=== PATIENT | female | born 1935 | race Caucasian/White ===

== ENCOUNTER → 2023-11-21 14:32 | Outpatient (REF) | payer MEDICARE, OTHER, SELFPAY ==
[2023-11-21 16:08] LABS: % Basophils 0.9 % (0-2); % Eosinophils 2.5 % (0-6); % Immature Granulocytes 0.3 % (0-0.5); % Lymphocytes 22.3 % (20.5-51.1); % Monocytes 7.9 % (1.7-9.3); % Neutrophils 66.1 % (42.2-75.2); Absolute Basophils 0.1 10^3/uL (0-0.2); Absolute Eosinophils 0.2 10^3/uL (0-0.7); Absolute Lymphocytes 1.5 10^3/uL (1.2-3.4); Absolute Monocytes 0.5 10^3/uL (0.1-0.6); Absolute Neutrophils 4.5 10^3/uL (1.4-6.5); Hematocrit 40.4 % (37.0-47.0); Hemoglobin 13.1 g/dL (12.0-16.0); Mean Corp Hgb Conc. 32.4 g/dL (33.0-37.0); Mean Corpuscular Hgb 30.2 pg (27.0-31.0); Mean Corpuscular Volume 93.1 fL (81.0-99.0); Mean Platelet Volume 9.5 fL (7.4-10.4); Nucleated Red Blood Cells % 0 %; Platelet Count 260 10^3/uL (130-400); Red Blood Cell Count 4.34 10^6/uL (4.20-5.40); Red Cell Dist. Width 14.4 % (11.5-14.5); White Blood Cell Count 6.8 10^3/uL (4.8-10.8)
[2023-11-21 16:32] LABS: ALT (SGPT) 13 U/L (0-35); AST (SGOT) 22 U/L (14-36); Albumin 3.5 g/dl (3.5-5.0); Alkaline Phosphatase 77 U/L (38-126); Blood Urea Nitrogen 18 mg/dl (7-17); Calcium 9.5 mg/dl (8.4-10.2); Carbon Dioxide 28 mmol/L (22-30); Chloride 101 mmol/L (98-107); Glucose 99 mg/dl (70-99); HDL Cholesterol 59 mg/dl; LDL Cholesterol, Calculated 145 mg/dl; Potassium 4.5 mmol/L (3.5-5.1); Sodium 138 mmol/L (135-145); Total Bilirubin 0.6 mg/dl (0.2-1.3); Total Cholesterol 241 mg/dl (50-199); Total Protein 6.1 g/dl (6.3-8.2); Triglyceride 189 mg/dl (10-149); Very Low Density Lipoprotein 37 mg/dl (0-30); eGFR > 60.00
[2023-11-22 08:59] LABS: Glycohemoglobin (HgbA1c) 5.8 % (4.0-5.6)
== END ==
LOC: OLABWPC 14:32
PROVIDERS: ATTENDING PHYSICIAN Internal Medicine
DX: C50.919 Malignant neoplasm of unspecified site of unspecified female breast (principal); F33.9 Major depressive disorder, recurrent, unspecified; F03.90 Unspecified dementia, unspecified severity, without behavioral disturbance, psychotic disturbance, mood disturbance, and anxiety; I10 Essential (primary) hypertension; E11.9 Type 2 diabetes mellitus without complications
CPT/HCPCS: 36415; 80053; 80061; 83036; 85025

== ENCOUNTER → 2023-12-28 15:32 | Outpatient (REF) | payer MEDICARE, OTHER, SELFPAY | LOC: DHCBS MAIN 15:32 | PROVIDERS: ATTENDING PHYSICIAN Internal Medicine Cardiovascular Disease; FAMILY PHYSICIAN Internal Medicine | DX: R01.1 Cardiac murmur, unspecified (principal) | CPT/HCPCS: 93306 ==

== ENCOUNTER → 2024-01-17 12:06 | Outpatient (REF) | payer MEDICARE, OTHER, SELFPAY ==
[2024-01-17 13:35] LABS: ALT (SGPT) 43 U/L (0-35); AST (SGOT) 37 U/L (14-36); Albumin 3.8 g/dl (3.5-5.0); Alkaline Phosphatase 98 U/L (38-126); Direct Bilirubin 0.3 mg/dl (0.0-0.4); HDL Cholesterol 58 mg/dl; LDL Cholesterol, Calculated 62 mg/dl; Total Bilirubin 0.5 mg/dl (0.2-1.3); Total Cholesterol 145 mg/dl (50-199); Total Protein 6.2 g/dl (6.3-8.2); Triglyceride 127 mg/dl (10-149); Very Low Density Lipoprotein 25 mg/dl (0-30)
== END ==
LOC: OLABWPC 12:06
PROVIDERS: ATTENDING PHYSICIAN Internal Medicine
DX: E78.00 Pure hypercholesterolemia, unspecified (principal)
CPT/HCPCS: 36415; 80061; 80076

== ENCOUNTER → 2024-05-08 22:00 | Outpatient (REF) | payer MEDICARE, OTHER, SELFPAY ==
[2024-05-09 12:27] LABS: Urine Albumin Trace (Neg - Trace); Urine Bilirubin Negative (Negative); Urine Character Mucous (Clear); Urine Color Yellow; Urine Glucose Negative (Negative); Urine Ketone Negative (Negative); Urine Leukocyte 1+ (Negative); Urine Nitrite Negative (Negative); Urine Occult Blood Negative (Negative); Urine Urobilinogen Negative (Neg - 1+)
[2024-05-09 12:42] LABS: Urine Bacteria Many (Negative); Urine Calcium Oxalate Crystals Present
[2024-05-09 12:44] LABS: Urine Mucus Moderate; Urine Red Blood Cell 0-2 /HPF (0-2); Urine White Cell 0-2 /HPF (0-5)
== END ==
LOC: OLABWPC 22:00
PROVIDERS: ATTENDING PHYSICIAN Internal Medicine
DX: N39.0 Urinary tract infection, site not specified (principal)
CPT/HCPCS: 81003; 81015; 87086

== ENCOUNTER 2025-02-02 22:11 | Inpatient (IN) | payer MEDICARE, OTHER, SELFPAY ==
--- NOTE | 2025-02-02 18:42 | ED.GENMED ---
History of Present Illness
<DANIELLE Bangura - Last Filed: 02/02/25 21:10>
General
Chief Complaint: Fall
Source: patient
Exam Limitations: none
Time Seen by Provider: 02/02/25 18:33
Nursing documentation reviewed up to this point in time: agreed with
History of Present Illness
History of Present Illness:
89 yr. old female from [facility] sent for evaluation of witnessed fall. As per medics they noticed patient was complaining of pain to the left leg and not walking normally after fall. retirement reported no head injury. Patient
does have chronic tremors that is not new. They also report patient is not on blood thinners. I did review medication list patient is not listed on any anticoagulation. Patient does complain of pain to the left femur left hip with palpation.
Past History
<DANIELLE Bangura - Last Filed: 02/02/25 21:10>
Past History
ED Past Medical History: Other (Dementia)
Social History
Tobacco: Non-smoker
Alcohol: None
Drug: None
Review of Systems
<DANIELLE Bangura - Last Filed: 02/02/25 21:10>
Review of Systems
Allergies reviewed?: Yes
Unable to obtain full review of systems at this time due to: dementia
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
All Other Systems: ROS reviewed and negative except as documented in HPI and ROS
Constitutional: Reports no symptoms
Musculoskeletal: Reports other (tender to left groin/femur, no deformity , pain with lifting leg off of stretcher )
Skin: Reports no symptoms
Neurological: Reports no symptoms
Psychiatric: Reports no symptoms
Phy Exam
<DANIELLE Bangura - Last Filed: 02/02/25 21:10>
General Physical Exam
General Presentation: no apparent distress
General age: appears stated age
General Skin: warm and dry
General Mental: confused
Cardiovascular Exam
Cardiovascular Exam: regular rate/rhythm, no murmur and normal peripheral pulses
Pulmonary Exam
Pulmonary Exam: lungs clear and no respiratory distress
Neurological Exam
Neurological Exam: alert and other (confused )
Musculoskeletal Exam
Musculoskeletal Exam: other (No obvious deformity to left leg however pain with range of motion tender to the left femur hip area)
Skin Exam
Skin Exam: normal color and warm/dry
Psychiatric Exam
Psychiatric Exam: normal mood/affect
Course
<DANIELLE Bangura - Last Filed: 02/02/25 21:10>
Orders/Labs/Results
Orders:
Orders
02/02/25 Breakfast
Regular
02/02/25 18:45
IV Insert/Care/Rem.- Treatment PRN
Hip, Left 2-3 Views [CR Hip - LT w/wo Pel 2-3 Vw*] Urgent
Comment:
Reason For Exam: trauma
Include a pelvis x-ray?: Yes
02/02/25 18:46
Morphine Sulfate 2 mg IV NOW STA
Femur, Left 2 View [CR Femur - Left Min 2 Vw] Urgent
Comment:
Reason For Exam: trauma
02/02/25 18:54
Complete Blood Count/With Diff Urgent
Comprehensive Metabolic Panel Urgent
02/02/25 20:52
Oxygen Therapy [O2 Therapy] [RESP] Urgent
Nasal Cannula Liter Flow: 2 LPM
Titrate/Wean O2 to maintain O2 sat greater than (%): 94
02/02/25 21:08
Electrocardiogram (*1) Stat
Reason for Study: Other
Other Reason for Exam: chest pain
EKG- Treatment ONCE
02/02/25 21:29
Admit/Transfer Patient As Directed
Co-Sign Provider:
Level of Care: Inpatient admission
Assign to:: Medical/Surgical
Physician / Group: Luca
Diagnosis: L Hip Fracture
Reason for Hospitalization: L Hip Fracture
Expected length of stay greater than two midnights?: Yes
ELOS- Estimated Length of Stay in days: 3
I certify the patient meets the requirements for IP care: Yes
02/02/25 21:36
PRN Pain Medication Management As Directed
May give lesser potent ordered pain med per pt: Yes
preference::
Protocol:: Medication orders for pain may be administered in a
manner that supports deferring to patient preference
when the pt is:
- Requesting an ordered lesser potent pain medication.
Least to most potent pain medications are defined
as: acetaminophen < NSAID < tramadol < opioids
(morphine, oxycodone, hydromorphone).
- Requesting a lesser dose of the same medication IF
ORDERED.
- Requesting a less intrusive route of administration
if both routes are prescribed by the provider (PO <
IV).
02/02/25 21:39
Code Status As Directed
Resuscitation Status: Do not resuscitate
Reached after discussion with pt or family/Healthcare POA: Yes
DNR Bracelet Application ONCE
02/02/25 22:00
Flush (0.9% Sodium Chloride) [Flush (Nss)] See Dose Instructions IV PER PROTOCOL
02/02/25 22:43
Acetaminophen [Tylenol] 1,000 mg PO TID
Atorvastatin [Lipitor] 20 mg PO HS
Donepezil HCl [Aricept] 10 mg PO HS
Melatonin 3 mg PO HS
Morphine Sulfate 2 mg IV Q4HPRN PRN
Olanzapine [Zyprexa] 2.5 mg PO HS
Tramadol HCl [Ultram] 25 mg PO Q6HPRN PRN
propranolol 60 mg PO HS
02/02/25 22:43
ORTHOPEDIC CONSULT Routine
Consulting Provider: Prakash Mayer
Was physician already notified: Yes
Reason for consult: L Hip Fracture
Activity As Directed
Activity Level: Bedrest
I/O [Intake/ Output] As Directed
Frequency: Per unit guidelines
Pneumatic Compression Sleeves As Directed
Type: Knee high
Vital Signs As Directed
Frequency: Per unit guidelines
Oxygen Therapy [O2 Therapy] [RESP] Routine
Titrate/Wean O2 to maintain O2 sat greater than (%): 94
DX Deep Vein Thrombosis Video Routine
02/03/25 Breakfast
NPO
Allow oral meds: Yes
Allow clear liquids: Sips of Clears
NPO for procedure after (time): Midnight
Basic Metabolic Panel IN AM
Complete Blood Count/No Diff IN AM
02/03/25 08:00
Escitalopram Oxalate [Lexapro] 10 mg PO DAILY
Abnormal Lab Results
02/02/25
18:54
WBC 12.7 H 10^3/uL
(4.8-10.8)
MCHC 32.6 L g/dL
(33.0-37.0)
Abs Immat Gran (auto) 0.1 H 10^3/uL
(0-0.05)
Absolute Neuts (auto) 11.0 H 10^3/uL
(1.4-6.5)
Absolute Lymphs (auto) 0.9 L 10^3/uL
(1.2-3.4)
Immature Gran % 0.7 H %
(0-0.5)
Neutrophils % 86.8 H %
(42.2-75.2)
Lymphocytes % 7.0 L %
(20.5-51.1)
Glucose 124 H mg/dl
(70-99)
Calcium 10.3 H mg/dl
(8.4-10.2)
02/02/25 18:54
02/02/25 18:54
Vital Signs
Initial and Last Documented VS:
Initial Vital Signs
Temp Pulse Resp BP Pulse Ox
36.8 C 74 16 157/56 88
02/02/25 18:47 02/02/25 18:47 02/02/25 18:47 02/02/25 18:47 02/02/25 18:47
Last Documented Vital Signs
Temp Pulse Resp BP Pulse Ox
36.8 C 84 15 168/70 96
02/02/25 18:47 02/02/25 22:00 02/02/25 22:00 02/02/25 22:00 02/02/25 22:03
<Vahid Wyatt MD - Last Filed: 02/02/25 22:47>
Orders/Labs/Results
Orders:
Orders
02/02/25 Breakfast
Regular
02/02/25 18:45
IV Insert/Care/Rem.- Treatment PRN
Hip, Left 2-3 Views [CR Hip - LT w/wo Pel 2-3 Vw*] Urgent
Comment:
Reason For Exam: trauma
Include a pelvis x-ray?: Yes
02/02/25 18:46
Morphine Sulfate 2 mg IV NOW STA
Femur, Left 2 View [CR Femur - Left Min 2 Vw] Urgent
Comment:
Reason For Exam: trauma
02/02/25 18:54
Complete Blood Count/With Diff Urgent
Comprehensive Metabolic Panel Urgent
02/02/25 20:52
Oxygen Therapy [O2 Therapy] [RESP] Urgent
Nasal Cannula Liter Flow: 2 LPM
Titrate/Wean O2 to maintain O2 sat greater than (%): 94
02/02/25 21:08
Electrocardiogram (*1) Stat
Reason for Study: Other
Other Reason for Exam: chest pain
EKG- Treatment ONCE
02/02/25 21:29
Admit/Transfer Patient As Directed
Co-Sign Provider:
Level of Care: Inpatient admission
Assign to:: Medical/Surgical
Physician / Group: Luca
Diagnosis: L Hip Fracture
Reason for Hospitalization: L Hip Fracture
Expected length of stay greater than two midnights?: Yes
ELOS- Estimated Length of Stay in days: 3
I certify the patient meets the requirements for IP care: Yes
02/02/25 21:36
PRN Pain Medication Management As Directed
May give lesser potent ordered pain med per pt: Yes
preference::
Protocol:: Medication orders for pain may be administered in a
manner that supports deferring to patient preference
when the pt is:
- Requesting an ordered lesser potent pain medication.
Least to most potent pain medications are defined
as: acetaminophen < NSAID < tramadol < opioids
(morphine, oxycodone, hydromorphone).
- Requesting a lesser dose of the same medication IF
ORDERED.
- Requesting a less intrusive route of administration
if both routes are prescribed by the provider (PO <
IV).
02/02/25 21:39
Code Status As Directed
Resuscitation Status: Do not resuscitate
Reached after discussion with pt or family/Healthcare POA: Yes
DNR Bracelet Application ONCE
02/02/25 22:00
Flush (0.9% Sodium Chloride) [Flush (Nss)] See Dose Instructions IV PER PROTOCOL
02/02/25 22:43
Acetaminophen [Tylenol] 1,000 mg PO TID
Atorvastatin [Lipitor] 20 mg PO HS
Donepezil HCl [Aricept] 10 mg PO HS
Melatonin 3 mg PO HS
Morphine Sulfate 2 mg IV Q4HPRN PRN
Olanzapine [Zyprexa] 2.5 mg PO HS
Tramadol HCl [Ultram] 25 mg PO Q6HPRN PRN
propranolol 60 mg PO HS
02/02/25 22:43
ORTHOPEDIC CONSULT Routine
Consulting Provider: Prakash Mayer
Was physician already notified: Yes
Reason for consult: L Hip Fracture
Activity As Directed
Activity Level: Bedrest
I/O [Intake/ Output] As Directed
Frequency: Per unit guidelines
Pneumatic Compression Sleeves As Directed
Type: Knee high
Vital Signs As Directed
Frequency: Per unit guidelines
Oxygen Therapy [O2 Therapy] [RESP] Routine
Titrate/Wean O2 to maintain O2 sat greater than (%): 94
DX Deep Vein Thrombosis Video Routine
02/03/25 Breakfast
NPO
Allow oral meds: Yes
Allow clear liquids: Sips of Clears
NPO for procedure after (time): Midnight
Basic Metabolic Panel IN AM
Complete Blood Count/No Diff IN AM
02/03/25 08:00
Escitalopram Oxalate [Lexapro] 10 mg PO DAILY
Abnormal Lab Results
02/02/25
18:54
WBC 12.7 H 10^3/uL
(4.8-10.8)
MCHC 32.6 L g/dL
(33.0-37.0)
Abs Immat Gran (auto) 0.1 H 10^3/uL
(0-0.05)
Absolute Neuts (auto) 11.0 H 10^3/uL
(1.4-6.5)
Absolute Lymphs (auto) 0.9 L 10^3/uL
(1.2-3.4)
Immature Gran % 0.7 H %
(0-0.5)
Neutrophils % 86.8 H %
(42.2-75.2)
Lymphocytes % 7.0 L %
(20.5-51.1)
Glucose 124 H mg/dl
(70-99)
Calcium 10.3 H mg/dl
(8.4-10.2)
02/02/25 18:54
02/02/25 18:54
Vital Signs
Initial and Last Documented VS:
Initial Vital Signs
Temp Pulse Resp BP Pulse Ox
36.8 C 74 16 157/56 88
02/02/25 18:47 02/02/25 18:47 02/02/25 18:47 02/02/25 18:47 02/02/25 18:47
Last Documented Vital Signs
Temp Pulse Resp BP Pulse Ox
36.8 C 84 15 168/70 96
02/02/25 18:47 02/02/25 22:00 02/02/25 22:00 02/02/25 22:00 02/02/25 22:03
<DANIELLE Bangura - Last Filed: 02/02/25 21:10>
MDM/Problems Addressed
Differential Diagnosis Includes:
not limited to: hip fracture/dislocation
MDM/Problems Addressed:
As documented patient is an 81-year-old female with dementia from nursing facility sent for witnessed fall no head injury. Patient complains of left hip pain and on exam is tender with range of motion no obvious deformity. CAT scan does show a
subcapital left hip fracture. Case reviewed with orthopedics Dr Mayer. Will admit to medicine keep n.p.o. at midnight. I did speak with pt's daughter over the phone and notify her of the findings.
<DANIELLE Bangura - Last Filed: 02/02/25 21:10>
*Radiology
Radiology exam reviewed: radiology read reviewed
*Pulse Oximetry
Patient hypoxic: no
*Critical Care Note
Total Time (30-74mins, 75-104mins- exclusive of procedures): Not Applicable
<DANIELLE Bangura - Last Filed: 02/02/25 21:10>
Patient Management
Discussion with other providers: Genetic Coordinator (Ortho Dr Mayer )
ED Attending Note
<DANIELLE Bangura - Last Filed: 02/02/25 21:10>
-
Portions of this chart may have been created with voice recognition software.� Occasional wrong word or��sound alike� substitutions may have occurred due to the inherent limitations of voice recognition software.
<Vahid Wyatt MD - Last Filed: 02/02/25 22:47>
ED Attending Note
Patient seen and examined by attending physician: Yes
ED Attending Note:
I have seen and evaluated the patient with a [id number] encounter. I have spoken to the advance practicer provider and involved in the medical history, the physical exam, medical decision making.
Evaluation and management service: agree unless noted differently below.
Results interpretation: agree unless noted differently below.
Focused HPI: 89-year-old female with a past medical history as noted significant for dementia presents from senior living after witnessed fall. Per report she fell onto her left side and injured her left hip. No head strike reported. Patient is a
limited historian due to her dementia but apparently acting at baseline. She is not on any blood thinners per review of her medication list. Patient is awake and alert, oriented to person but not place or time. She does follow commands
consistently. She answers simple questions. She says she has pain in her left hip. She denies any headache, neck pain, back pain, chest pain, abdominal pain, pain in the arms.
Physical exam: Awake and alert oriented x 1. Head is normocephalic and atraumatic. No tenderness in the cervical spine. No chest wall or abdominal tenderness. No signs of trauma to the upper extremities. Left lower extremity is shortened and
externally rotated. Significant pain with attempts at range of motion of the left hip. She has strong pulses distally in the left lower extremity.
Medical Decision Makin-year-old female presents after witnessed fall with left hip injury. X-ray shows fracture of the left hip. Fortunately she has no other signs of acute traumatic injuries. Nurse practitioner discussed with orthopedics,
will admit for continued management of hip fracture.
Discharge Plan
Departure
Patient Disposition: Admit
Date of Disposition: 02/02/25
Time of Disposition: 21:09
Admit to: Med/Surg
Admit to doctor: hospitalist
Presentation/result/management discussed w/ accepting MD/DO: Hospitalist
Patient with high blood pressure during this ER visit?: Yes
Condition: Fair
Covid-19: Not Applicable
Discharge Problem:
Closed fracture of left hip
Interventions
Interventions:
*Risk Screen - Suicide Last Done: 02/02/25 18:47
*General Assessment Last Done: 02/02/25 19:26
*Neglect/Abuse Screening Last Done: 02/02/25 18:47
*ED- Fall Risk Assessment Last Done: 02/02/25 19:26
*ED COVID-19 Vaccine History Last Done: 02/02/25 19:26
*Nursing Disposition Last Done: 02/02/25 22:33
ED-Musculoskeletal Assessment Last Done: 02/02/25 19:26
ED- Neurological Assessment Last Done: 02/02/25 19:26
ED-Skin Assessment Last Done: 02/02/25 19:26
Discharge Date and Time
Discharge Date/Time: 02/02/25 22:33
[2025-02-02 18:47] VITALS: BP 157/56
[2025-02-02] MEDS: MORPHINE SULFATE 2 MG IV (18:56)
[2025-02-02 19:00] VITALS: BP 155/63
[2025-02-02 19:07] LABS: % Basophils 0.4 % (0-2); % Eosinophils 0.4 % (0-6); % Immature Granulocytes 0.7 % (0-0.5); % Monocytes 4.7 % (1.7-9.3); % Neutrophils 86.8 % (42.2-75.2); Absolute Basophils 0.1 10^3/uL (0-0.2); Absolute Eosinophils 0.1 10^3/uL (0-0.7); Absolute Immature Granulocytes 0.1 10^3/uL (0-0.05); Absolute Lymphocytes 0.9 10^3/uL (1.2-3.4); Absolute Monocytes 0.6 10^3/uL (0.1-0.6); Hematocrit 43.2 % (37.0-47.0); Hemoglobin 14.1 g/dL (12.0-16.0); Mean Corp Hgb Conc. 32.6 g/dL (33.0-37.0); Mean Corpuscular Hgb 30.4 pg (27.0-31.0); Mean Corpuscular Volume 93.1 fL (81.0-99.0); Mean Platelet Volume 8.8 fL (7.4-10.4); Nucleated Red Blood Cells % 0 %; Platelet Count 259 10^3/uL (130-400); Red Blood Cell Count 4.64 10^6/uL (4.20-5.40); Red Cell Dist. Width 14.1 % (11.5-14.5); White Blood Cell Count 12.7 10^3/uL (4.8-10.8)
[2025-02-02 19:21] LABS: ALT (SGPT) 19 U/L (0-35); AST (SGOT) 24 U/L (14-36); Albumin 3.8 g/dl (3.5-5.0); Alkaline Phosphatase 98 U/L (38-126); Blood Urea Nitrogen 17 mg/dl (7-17); Calcium 10.3 mg/dl (8.4-10.2); Carbon Dioxide 30 mmol/L (22-30); Chloride 102 mmol/L (98-107); Glucose 124 mg/dl (70-99); Potassium 4.3 mmol/L (3.5-5.1); Sodium 140 mmol/L (135-145); Total Bilirubin 1.1 mg/dl (0.2-1.3); Total Protein 6.8 g/dl (6.3-8.2); eGFR > 60.00
[2025-02-02 20:44] VITALS: BP 141/100
--- NOTE | 2025-02-02 20:48 | EDRN ---
Pt's pre-hospital pull up removed due to urinary incontinence. Perineal care provided, purewick placed. Pt's pulse ox on room air was 85%. On 2 lpm pulse ox came up to 90%. Pt on 3 lpm currently pulse ox 97%
--- NOTE | 2025-02-02 21:45 | HPS.HSE ---
Family Physician
-
Family Physician: Donna De Guzman
Chief Complaint
-
L Hip Pain / Fall
History of Present Illness
Patient is an 89y F with PMH significant for senile dementia who presents to ED for evaluation of LLE pain and abnormal gait. Patient reportedly suffered a fall at her nursing facility - it is not clear when this occurred. Staff at the facility
noted the patient was 'favoring' her LLE while walking after the fall and seemed to be in discomfort. She was sent to the ED for further evaluation. Imaging in the ED reveals L femoral fracture.
Patient is unable to contribute to this history due to her baseline dementia.
Medical History
Past Medical History
Past Medical History: Reports Other
Additional Past Medical History:
Senile Dementia with Behavioral Disturbance
Bipolar Depression / Schizoaffective Disorder
Hypertension
Breast Cancer s/p Lumpectomy and XRT
Hypothyroidism
Past Surgical History: Reports Other
Additional Past Surgical History:
Right CHELSIE
Appendectomy
Social History
Tobacco: Non-smoker
Alcohol: None
Drug: None
Living: Senior Care
Family History
Family History: Not pertinent
Allergies / Home Medications
Allergies reflects when Allergies were last updated in [facility].
Home Medications with original date entered in [facility]
Allergy/Medication List:
Allergies
Allergy/AdvReac Type Severity Reaction Status Date / Time
Oil Face Cream Allergy Unknown Uncoded 02/02/25 19:30
Home Medications
acetaminophen 325 mg tablet (Tylenol) 650 mg PO BID 02/02/25
acetaminophen 325 mg tablet (Tylenol) 650 mg PO Q6H PRN fever/pain 02/02/25
atorvastatin 20 mg tablet 20 mg PO HS 02/02/25
carbamide peroxide 6.5 % ear drops (Debrox) 4 drp EACH EAR WE 02/02/25
cholecalciferol (vitamin D3) 25 mcg (1,000 unit) tablet 25 mcg PO DAILY 02/02/25
cyanocobalamin (vitamin B-12) 500 mcg tablet 1,000 mcg PO DAILY 02/02/25
donepezil 10 mg tablet 10 mg PO HS 02/02/25
escitalopram oxalate 10 mg tablet (Lexapro) 10 mg PO DAILY 02/02/25
guaifenesin 100 mg/5 mL oral liquid 200 mg PO Q4H PRN cough 02/02/25
melatonin 3 mg tablet 3 mg PO HS 02/02/25
olanzapine 2.5 mg tablet 2.5 mg PO HS 02/02/25
propranolol 60 mg tablet 60 mg PO HS 02/02/25
Review of Systems
-
Unable to obtain full review of systems at this time due to: Dementia
History Source: Patient
Respiratory: Denies Trouble Breathing
Cardiac: Denies Chest Pain
Abdomen/GI: Denies Abdominal Pain
Neurological: Denies Headache
Physical Exam
Vital Signs
Vital Signs
Temp Pulse Resp BP Pulse Ox
98.2 F 96 18 141/100 97
02/02/25 18:47 02/02/25 20:44 02/02/25 20:44 02/02/25 20:44 02/02/25 20:51
Physical Exam
General: Other (89y F in no apparent distress.)
HEENT: Moist mucous membranes and PERRLA
Respiratory: Clear; No Wheezes, Rales or Rhonchi
Cardiac: S1/S2 and Regular Rhythm; No Murmur
GI: Soft, Non Tender, Non Distended and Normal Bowel Sounds
Musculoskeletal: No Clubbing, No Cyanosis, No Edema and Other (LLE externally rotated.)
Neuro: Awake; No Oriented
Laboratory Results
-
02/02/25 18:54
02/02/25 18:54
Laboratory Results
Total Bilirubin 1.1 mg/dl (0.2-1.3) 02/02/25 18:54
AST 24 U/L (14-36) 02/02/25 18:54
ALT 19 U/L (0-35) 02/02/25 18:54
Alkaline Phosphatase 98 U/L (38-126) 02/02/25 18:54
Impression/Plan
-
A/P: Patient is an 89y F with PMH significant for dementia and hypertension who presents to ED for evaluation of LLE pain s/p fall.
Left Femoral Fracture
Fall at NH
- Admit for further evaluation and treatment.
- Pain control / supportive care.
- Ortho evaluation for operative repair.
- NPO after midnight.
- Patient is at average risk for complications related to anesthesia / surgery.
- Benefits of planned procedure outweigh the potential risks and patient may proceed to OR without further pre-op evaluation(s).
- Post-op care per Ortho.
Senile Dementia with Behavioral Disturbance
Bipolar Depression
- Stable. Continue usual psychotropic medications.
Benign Hypertension
- Stable. Continue propranolol.
DVT Prophylaxis: SCDs
Code Status: DNR
[2025-02-02 22:00] VITALS: BP 168/70
[2025-02-02 23:17] VITALS: BP 191/100
[2025-02-02] MEDS: TYLENOL 1000 MG PO (23:20)
[2025-02-02] MEDS: MELATONIN 3 MG PO (23:21)
[2025-02-02] MEDS: LIPITOR 20 MG PO (23:21)
[2025-02-02] MEDS: ARICEPT 10 MG PO (23:21)
[2025-02-02] MEDS: ZYPREXA 2.5 MG PO (23:21)
[2025-02-02] MEDS: INDERAL LA 60 MG PO (23:21)
--- NOTE | 2025-02-02 23:30 | PTCARENOTE ---
Received pt. from ER, pulled over to room bed from stretcher. Pt. oriented to self, can answer simple questions, but majority of admission questions are unable to be done d/t her mentation. Pt. found to be hypertensive upon arrival - BP meds pending
pharm verification, 94% on 3L NC. Bed locked and in lowest position, side rails in place, bed alarm active, call light within reach, air overlay inflated.
[2025-02-03] VITALS (20 sets, daily range): BP systolic 100–232; BP diastolic 46–214
[2025-02-03 06:17] LABS: Hematocrit 40.8 % (37.0-47.0); Hemoglobin 13.4 g/dL (12.0-16.0); Mean Corp Hgb Conc. 32.8 g/dL (33.0-37.0); Mean Corpuscular Hgb 30.9 pg (27.0-31.0); Mean Corpuscular Volume 94.2 fL (81.0-99.0); Mean Platelet Volume 9.1 fL (7.4-10.4); Platelet Count 242 10^3/uL (130-400); Red Blood Cell Count 4.33 10^6/uL (4.20-5.40); Red Cell Dist. Width 14.1 % (11.5-14.5); White Blood Cell Count 11.3 10^3/uL (4.8-10.8)
[2025-02-03 06:50] LABS: Blood Urea Nitrogen 21 mg/dl (7-17); Calcium 9.8 mg/dl (8.4-10.2); Carbon Dioxide 29 mmol/L (22-30); Chloride 99 mmol/L (98-107); Estimated Creatinine Clearance 51 ml/min; Glucose 128 mg/dl (70-99); Potassium 3.9 mmol/L (3.5-5.1); Sodium 140 mmol/L (135-145); eGFR > 60.00
[2025-02-03] MEDS: TYLENOL 1000 MG PO (07:25)
[2025-02-03] MEDS: LEXAPRO 10 MG PO (07:25)
--- NOTE | 2025-02-03 08:05 | W.PN.UPDATE ---
Update Note
Progress Note Update
Patient seen evaluated bedside. Chart reviewed
89-year-old female history of dementia with left displaced femoral neck fracture
Nonweightbearing left lower extremity
N.p.o.
Please hold anticoagulation in preparation for OR
Will reach out to patient's medical power of network developer regarding surgical decision making
Medical management per primary team
Plan: 2 OR hopefully later today pending medical clearance or availability and discussion with medical power of network developer
Formal consult note to follow
--- NOTE | 2025-02-03 10:36 | CM ---
Addendum entered by Molly Fox RN 02/03/25 12:15:
CM spoke with the patient's daughter Velvet via telephone. Per Velvet, patient resides in [facility]. Patient typically uses no DME. Patient has not had VN nor been to a SNF. Patient's daughter will provide a list of facilities for post
hospital placement. CM continues to be available to patient/family and is monitoring medical plan for needs at discharge.
Plan: Discharge to SNF/rehab once medically stable and bed secured. No prior auth required. Referral started in [facility] with completed PASRR.
Original Note:
Reviewed the chart notes and left voice message with CM information for the patient's son Deniz.
--- NOTE | 2025-02-03 12:09 | W.PN.UPDATE ---
Update Note
Progress Note Update
Spoke to patient's daughter who is her medical power of supervisor framing mill regarding patient's diagnosis. We discussed both surgical and non surgical options. We discussed both arthroplasty and fixation options. We discussed risks, benefits and alternatives
to surgery. After our discussion, she elected to proceed with hip hemiarthroplasty procedure for her mother's displaced femoral neck fracture. All questions were addressed and answered. Plan for OR later today.
--- NOTE | 2025-02-03 12:09 | W.PN.HOSP.TC ---
Today's Communication/Plan
-
see outlined plan below
Assessment / Plan
Assessment / Plan
Assessment:
Mechanical fall, with traumatic left Femoral Fracture
- Xray: ACUTE SUBCAPITAL FRACTURE of the LEFT FEMORAL NECK.
- pain control
- Ortho consulted for operative repair
- Patient is at average risk for complications related to anesthesia / surgery.
- Benefits of planned procedure outweigh the potential risks and patient may proceed to OR without further pre-op evaluation(s).
- Post-op care per Ortho.
Transient hypoxia
- CXR negative
- wean O2 as able
Senile Dementia with Behavioral Disturbance
Bipolar Depression
- Stable. continue usual psychotropic medications.
Benign Hypertension
- Stable. continue propranolol.
DVT Prophylaxis: SCDs
Code Status: DNR
Anticipated Discharge: > 48 hours
Subjective/Interval History
-
Date of Service: February 03, 2025
denies any new complaints at present
Objective Data
-
Labs:
Laboratory Results
02/03/25
05:52
WBC 11.3 H
Hgb 13.4
Hct 40.8
Plt Count 242
Sodium 140
Potassium 3.9
Chloride 99
Carbon Dioxide 29
BUN 21 H
Creatinine 0.6
Glucose 128 H
Calcium 9.8
Vital Signs:
Vital Signs
Temp Pulse Resp BP Pulse Ox
97.9 F 70 19 143/77 100
02/03/25 07:19 02/03/25 07:19 02/03/25 07:19 02/03/25 07:19 02/03/25 07:19
I&O
02/02/25 02/03/25 02/04/25
06:59 06:59 06:59
Intake Total 0 / 0
Balance 0 / 0
Physical Exam
-
General: No Apparent Distress
HEENT: Normocephalic
Respiratory: Negative Wheezes
Cardiac: Regular Rhythm and S1/S2
GI: Soft and Nontender
Musculoskeletal: Other (LLE externally rotated)
Neuro: AO x 3
Hematologic / Lymphatic: No Lymphadenopathy
Psych: Calm
Data Reviewed
-
Total Time Spent with Patient (in minutes): 45
Labs: Labs Reviewed by me
[2025-02-03] MEDS: TYLENOL PO ×2 (16:30→22:43)
--- NOTE | 2025-02-03 18:54 | OR.RPT ---
Operative Report
Operative Report
Date
February 03, 2025
Anesthesia Type:
General
Operative Indications:
Displaced left ulna fracture
Operative Findings :
Same
Complications:
None
Implants:
Anette/[employer] bipolar arthroplasty, size 11 stem, size 47 bipolar shell with a 28+3.5 head, cemented
Procedure and Technique:
Cemented left hip hemiarthroplasty
INDICATIONS FOR PROCEDURE:
89-year-old female history of dementia sustained a mechanical fall complains of left hip pain and inability to bear weight. She was subsequently diagnosed with a displaced left femoral neck fracture. I had a long discussion with her daughter who
is her medical power of staff attorney regarding treatment options. We discussed both surgical and nonsurgical options. We discussed both fixation and arthroplasty options. The ultimately elected to proceed with left hip hemiarthroplasty cemented. We
discussed risks benefits and alternatives to surgery. Discussed usual expected perioperative and postoperative course. No guarantees were given. After discussion verbal consent was obtained over the telephone.
OPERATIVE PROCEDURE:
Patient was seen and identified in the preoperative holding area. Operative extremity was marked. Patient was taken to the operating room and anesthesia was administered by the anesthesia providers. Patient was then placed in a lateral decubitus
position with the use of a alvarado bag. All bony prominences were well-padded. Operative extremity was then prepped and draped in normal sterile fashion. Timeout was performed again identifying the correct operative extremity. Preoperative
antibiotics were addressed. Standard posterior approach to the hip was taken. Sharp dissection was carried through skin and subcutaneous tissues and deep fascial layer. Hemostasis was achieved with electrocautery. Hip was then placed on slight
internal rotation to place the external rotators on stretch. Piriformis was identified and a Cobra retractor was then placed under the gluteus medius and minimus. Piriformis and short external rotators were taken down and tagged. A T capsulotomy
was then performed and capsular leaflets were also tagged. The fracture was identified and a freshen up cut was performed. The femoral head was then removed and sized. Appropriately sized ball on a stick was then placed into the acetabulum and
felt to have appropriate suction fit. Attention was then turned to the proximal femur where soft tissue remnants were removed from the piriformis fossa. Remnant neck was removed with the use of a cookie cutter. Canal finder was then placed in
addition to lateralizing reamer. Stepwise broaching was then performed to the appropriate size. Implants were then trialed and found to have appropriate stability in deep flexion, internal rotation, shuck and adduction. Implants were then removed
and canal was copiously irrigated normal saline solution. Cement restrictor was then placed. Pressurized cement was then placed into the femoral canal and appropriately sized femoral stem was then placed in the appropriate version. After cement
had hardened, final implants were then placed and the hip was again taken through range of motion and found to be quite stable. Satisfied with the extent of surgery, wound was copiously irrigated with normal saline solution and a Betadine solution.
The capsule, piriformis and short external rotators were then repaired through osseous tunnels into the greater trochanter. Wound was then closed in a layered fashion utilizing #1 strata fix for deep fascial layer, 2-0 Vicryl for subcutaneous
layer and amrik for skin. Aquacel dressing was then placed. Anesthesia was reversed and patient was taken to PACU in a stable condition. Postoperative plans will include weightbearing to the patient's tolerance in the operative extremity.
Posterior hip precautions will be advised. Recommend DVT prophylaxis consisting of renally dosed Lovenox daily for 28 days unless patient is already on baseline anticoagulation. Will plan to see patient back in 2 weeks for postoperative evaluation
with planned removal of amrik.
Disposition:
PACU, stable condition
--- NOTE | 2025-02-03 19:00 | CON.ORTHO ---
Consultation
-
Date/Time Consultation Performed: 02/03/2025 720 AM
Consultation - Orthopedics
History
HPI: 89-year-old female dementia presented to the emergency department after fall with complaints of left hip pain and inability to bear weight. She was ultimately diagnosed with a displaced left femoral neck fracture. She was admitted to the
hospitalist service. Orthopedics is consulted for further evaluation and treatment. Unable to obtain history from patient and chart review was performed given patient's baseline dementia. Was able to speak with patient's daughter on the telephone
and reported that she has dementia but does ambulate independently.
Allergies / Home Medications
Past medical history: Dementia, hypertension, breast cancer
Past surgical history: Lumpectomy, appendectomy, right total hip arthroplasty
Family history: Not pertinent
Social history: Resides in detention, dementia, non-smoker
Allergy/AdvReac Type Severity Reaction Status Date / Time
Oil Face Cream Allergy Unknown Uncoded 02/02/25 19:30
�Medication �Instructions �Recorded
acetaminophen 325 mg tablet 650 mg PO BID 02/02/25
(Tylenol)
acetaminophen 325 mg tablet 650 mg PO Q6H PRN fever/pain 02/02/25
(Tylenol)
atorvastatin 20 mg tablet 20 mg PO HS 02/02/25
carbamide peroxide 6.5 % ear drops 4 drp EACH EAR WE 02/02/25
(Debrox)
cholecalciferol (vitamin D3) 25 25 mcg PO DAILY 02/02/25
mcg (1,000 unit) tablet
cyanocobalamin (vitamin B-12) 500 1,000 mcg PO DAILY 02/02/25
mcg tablet
donepezil 10 mg tablet 10 mg PO HS 02/02/25
escitalopram oxalate 10 mg tablet 10 mg PO DAILY 02/02/25
(Lexapro)
guaifenesin 100 mg/5 mL oral liquid 200 mg PO Q4H PRN cough 02/02/25
melatonin 3 mg tablet 3 mg PO HS 02/02/25
olanzapine 2.5 mg tablet 2.5 mg PO HS 02/02/25
propranolol 60 mg tablet 60 mg PO HS 02/02/25
Vital Signs / Lab Results
Temp Pulse Resp BP Pulse Ox
98.0 F 77 19 141/55 94
02/03/25 15:08 02/03/25 15:08 02/03/25 15:08 02/03/25 15:08 02/03/25 15:08
02/03/25 05:52
02/03/25 05:52
10 point review systems reviewed and negative unless otherwise stated
General: Minimally interactive, unable to comply with examination or meaningfully answer any questions
Musculoskeletal left lower extremity
Skin intact, no erythema recommended staining
Visible grimace with palpation of groin and lateral trochanteric flare
Extremity short externally rotated
No palpable ipsilateral knee effusion
Spontaneously moving toes
Brisk cap refill
No other areas of visible grimace with palpation along bones or joints of tissue exam
Diagnostic studies
X-rays left hip reviewed show displaced femoral neck fracture
Assessment / Plan
89-year-old female history of dementia status post fall with displaced left femoral neck fracture. Was able to speak with the patient's daughter who is her medical power of control systems specialist. We discussed both surgical and nonsurgical options. We
discussed both fixation and arthroplasty options. Ultimately we elected to proceed with left hip hemiarthroplasty. We discussed risks benefits alternatives to surgery. Discussed the usual expected perioperative and postoperative course. After
discussion verbal consent was obtained over the telephone
Nonweightbearing left lower extremity
N.p.o.
Please hold anticoagulation in preparation for OR
Medical management per primary team
Plan: 2 OR today for left hip hemiarthroplasty pending or availability medical clearance
--- NOTE | 2025-02-03 20:52 | PTCARENOTE ---
Addendum. Patient had multiple BP readings 200's/100's still remains with tremors Dr Christiansen made aware, no intervention at this time. Continued BP checks now indicating normotensive see VS flow sheet. Will obtain additional VS for stability.
Patient appears comfortable, still sedate, will occasional open eyes to tactile stimulation, however does not follow any commands nor is verbal. Per Dr Christiansen this was baseline.
[2025-02-03] MEDS: COLACE PO (22:14)
[2025-02-03] MEDS: NSS 1000 IV (22:14)
[2025-02-03 22:23] LABS: Glucose - Point of Care 132 mg/dl (70-99)
--- NOTE | 2025-02-03 22:30 | PTCARENOTE ---
Received patient from PACU. stable vitals. but very drowsy, responds to pain only . Per report from PACU, she was the same way in PACU, anesthesiologist aware of this and okay to come to this floor. Left hip dressing Intact with drainage ( marked).
Held 2200 PO meds she unable to swallow meds. Bed alarm in place for safety.
[2025-02-03] MEDS: LIPITOR PO (22:41)
[2025-02-03] MEDS: MELATONIN PO (22:41)
[2025-02-03] MEDS: INDERAL LA PO (22:44)
[2025-02-03] MEDS: ARICEPT PO (22:48)
[2025-02-03] MEDS: ZYPREXA PO (22:48)
[2025-02-03] MEDS: ANCEF 5 IV (23:29)
[2025-02-04] VITALS (7 sets, daily range): BP systolic 115–137; BP diastolic 52–68
[2025-02-04 04:23] LABS: Urine Albumin 2+ (Neg - Trace); Urine Bilirubin Negative (Negative); Urine Character Clear (Clear); Urine Color Yellow; Urine Glucose Negative (Negative); Urine Ketone 1+ (Negative); Urine Leukocyte Negative (Negative); Urine Nitrite Negative (Negative); Urine Occult Blood Negative (Negative); Urine Urobilinogen Negative (Neg - 1+)
[2025-02-04 05:00] LABS: Urine White Cell 0-2 /HPF (0-5)
[2025-02-04 05:01] LABS: Urine Squamous Cell 0-2 /LPF (Few)
[2025-02-04] MEDS: NSS 1000 IV ×3 (06:08→22:28)
[2025-02-04 06:38] LABS: Hematocrit 35.2 % (37.0-47.0); Hemoglobin 11.4 g/dL (12.0-16.0); Mean Corp Hgb Conc. 32.4 g/dL (33.0-37.0); Mean Corpuscular Hgb 30.6 pg (27.0-31.0); Mean Corpuscular Volume 94.4 fL (81.0-99.0); Mean Platelet Volume 9.3 fL (7.4-10.4); Platelet Count 197 10^3/uL (130-400); Red Blood Cell Count 3.73 10^6/uL (4.20-5.40); Red Cell Dist. Width 14.9 % (11.5-14.5)
[2025-02-04 07:02] LABS: Blood Urea Nitrogen 29 mg/dl (7-17); Calcium 8.9 mg/dl (8.4-10.2); Carbon Dioxide 29 mmol/L (22-30); Chloride 105 mmol/L (98-107); Estimated Creatinine Clearance 38 ml/min; Glucose 131 mg/dl (70-99); Potassium 4.7 mmol/L (3.5-5.1); Sodium 140 mmol/L (135-145); eGFR > 60.00
[2025-02-04] MEDS: ANCEF 5 IV (08:20)
[2025-02-04] MEDS: LOVENOX 40 MG SC (08:20)
[2025-02-04] MEDS: COLACE PO ×2 (08:20→23:11)
[2025-02-04] MEDS: LEXAPRO PO (08:20)
[2025-02-04] MEDS: TYLENOL PO ×3 (08:20→23:13)
--- NOTE | 2025-02-04 11:15 | W.PN.HOSP.TC ---
Today's Communication/Plan
-
PT/OT when able
pain control
Assessment / Plan
Assessment / Plan
Assessment:
Mechanical fall, with traumatic left Femoral Fracture
- Xray: ACUTE SUBCAPITAL FRACTURE of the LEFT FEMORAL NECK.
- Ortho following
- s/p Cemented left hip hemiarthroplasty 02/03
- continue pain control
- DVT ppx: Lovenox
- PT/OT; WBAT. Posterior hip precautions will be advised
Transient hypoxia
- CXR negative
- weaned to RA
Senile Dementia with Behavioral Disturbance
Bipolar Depression
- Stable. continue usual psychotropic medications.
Benign Hypertension
- Stable. continue propranolol.
DVT Prophylaxis: Lovenox
Code Status: DNR/DNI
Anticipated Discharge: > 48 hours
Subjective/Interval History
-
Date of Service: February 04, 2025
resting comfortably, no overnight events
Objective Data
-
Labs:
Laboratory Results
02/04/25
05:56
WBC 10.0
Hgb 11.4 L
Hct 35.2 L
Plt Count 197
Sodium 140
Potassium 4.7
Chloride 105
Carbon Dioxide 29
BUN 29 H
Creatinine 0.8
Glucose 131 H
Calcium 8.9
Vital Signs:
Vital Signs
Temp Pulse Resp BP Pulse Ox
98.5 F 83 19 130/56 95
02/04/25 07:24 02/04/25 07:24 02/04/25 07:24 02/04/25 07:24 02/04/25 08:20
I&O
02/03/25 02/04/25 02/05/25
06:59 06:59 06:59
Intake Total 0 / 0 750 / 750
Output Total 550 / 550
Balance 0 / 0 200 / 200
Physical Exam
-
General: No Apparent Distress
HEENT: Normocephalic and Atraumatic
Respiratory: Negative Wheezes
Cardiac: Regular Rhythm
GI: Soft
Neuro: Awake
Psych: Calm
Data Reviewed
-
Total Time Spent with Patient (in minutes): 45
Labs: Labs Reviewed by me
--- NOTE | 2025-02-04 12:13 | PN.CDI ---
CDI
- -
CDI:
Physician Documentation Request
Admit Date: 02/02/25 22:11
Dear Doctor Bhanu,
Clinical Indicators:
Patient admitted with left femoral neck fracture; s/p Left hip hemiarthroplasty 02/03.
02/03 Anesthesia Report, IVF: 1300 ml EBL: 150 ml
Hgb/Hct trend:
02/02/25 02/03/25 02/04/25
18:54 05:52 05:56
Hgb 14.1 13.4 11.4 L
Hct 43.2 40.8 35.2 L
Based on the above, could you clarify in the progress notes, the appropriate diagnosis, if significant, that supports the above abnormalities and additional evaluation, monitoring and/or treatment rendered:
Anemia, multifactorial due to acute blood loss and hemodilution
Anemia due to hemodilution only
Other, please specify
Use of terms such as suspected, likely, concern for, or probable (associated with a specific diagnosis that is being evaluated, monitored, or treated as if it exists) are acceptable and can be coded in the inpatient setting, when documented at the
time of discharge.
Thank you,
ROBERTO Gunter RN
CDI Specialist
available via tiger text
Please use your independent medical judgment in providing your response.
--- NOTE | 2025-02-04 15:03 | CM ---
Reviewed the chart notes. PT/OT evaluations pending. Patient to lethargic to participate today. CM continues to be available to patient/family and is monitoring medical plan for needs at discharge.
Plan: Discharge most likely to SNF/rehab prior to returning to [place].
--- NOTE | 2025-02-04 19:28 | W.PN.ORTHO ---
Today's Communication / Plan
-
89-year-old female dementia postop day 1 status post left hip hemiarthroplasty
Weightbearing as tolerated left lower extremity
PT OT
Posterior hip precautions
DVT prophylaxis: Recommend Lovenox x 28 days
Pain control
Medical management per primary team
Planned follow-up outpatient with myself in 2 to 3 weeks for repeat clinical assessment
Subjective
.
.:
Patient resting comfortably in bed. Verbalizes no complaints.
Vital Signs and Labs
.
Vital Signs and Labs:
Lab Results
02/04/25 05:56
02/04/25 05:56
Temp Pulse Resp BP Pulse Ox
99.2 F 80 18 137/52 100
02/04/25 15:15 02/04/25 15:15 02/04/25 15:15 02/04/25 15:15 02/04/25 15:15
Physical Exam
-
Musculoskeletal left lower extremity
Mild to moderate bloody drainage dressing
Leg lengths approximately equal
No rotational deformity to the left leg
Spontaneously moving toes
Brisk cap refill
--- NOTE | 2025-02-04 21:00 | PTCARENOTE ---
Received pt in bed, RN of previous shift reported pt has remained drowsy all day and unable to safely swallow medications, arouses to tactile stimulation, no appetite, incont for large void prior to change of shift. Pt continues to be drowsy at
start of shift, arousable to tactile but falls back to sleep. VSS, blood glucose 133, house provider assessed @ bedside r/t to drowsiness. Pt continues with essential tremors, non verbal, arousable with tactile stimulation. Reviewed previous notes
that reports pt has been drowsy and is baseline r/t dementia. Pt not able to take water or sip from straw or cup, medications held r/ to safety, speech consult ordered.
[2025-02-04 22:59] LABS: Glucose - Point of Care 133 mg/dl (70-99)
[2025-02-04] MEDS: ARICEPT PO (23:11)
[2025-02-04] MEDS: MELATONIN PO (23:12)
[2025-02-04] MEDS: INDERAL LA PO (23:12)
[2025-02-04] MEDS: LIPITOR PO (23:12)
[2025-02-04] MEDS: ZYPREXA PO (23:13)
--- NOTE | 2025-02-05 04:32 | PTCARENOTE ---
Pt incont of saturated void @ this time. Pt arousable to verbal and tactile @ this time, able to follow simple command to squeeze hand, remains non verbal. Pt falls back to sleep w/o difficulty, bed alarm activated.
--- NOTE | 2025-02-05 06:41 | W.PN.UPDATE ---
Update Note
Progress Note Update
RN reports patient been drowsy all day and not being able to take PO medications. Patient seen and evaluated, resting in bed, responds to pain stimulation upper and lower extremities, withdraws extremities from pain, noted grimaces on face, PERRL.
lungs clear, RR, + BS, no bleeding noted at the surgical site Left hip, stable VS, drowsiness likely due to Post op effects, senile dementia.
In AM per RN patient is more arousable to verbal and tactile and able to follow simple command.
[2025-02-05 07:17] VITALS: BP 111/59
[2025-02-05 07:28] LABS: Blood Urea Nitrogen 35 mg/dl (7-17); Calcium 8.8 mg/dl (8.4-10.2); Carbon Dioxide 30 mmol/L (22-30); Chloride 108 mmol/L (98-107); Estimated Creatinine Clearance 51 ml/min; Glucose 116 mg/dl (70-99); Hematocrit 27.7 % (37.0-47.0); Hemoglobin 8.8 g/dL (12.0-16.0); Mean Corp Hgb Conc. 31.8 g/dL (33.0-37.0); Mean Corpuscular Hgb 30.7 pg (27.0-31.0); Mean Corpuscular Volume 96.5 fL (81.0-99.0); Mean Platelet Volume 9.5 fL (7.4-10.4); Platelet Count 163 10^3/uL (130-400); Potassium 4.2 mmol/L (3.5-5.1); Red Blood Cell Count 2.87 10^6/uL (4.20-5.40); Red Cell Dist. Width 14.9 % (11.5-14.5); Sodium 141 mmol/L (135-145); White Blood Cell Count 8.3 10^3/uL (4.8-10.8); eGFR > 60.00
--- NOTE | 2025-02-05 09:06 | W.PN.HOSP.TC ---
Today's Communication/Plan
-
CT head
IV Rocephin, day 1 pending culture
IVF
monitor mentation
monitor Hb
Assessment / Plan
Assessment / Plan
Assessment:
Mechanical fall, with traumatic left Femoral Fracture
- Xray: ACUTE SUBCAPITAL FRACTURE of the LEFT FEMORAL NECK.
- Ortho following
- s/p Cemented left hip hemiarthroplasty 02/03
- continue pain control
- DVT ppx: Lovenox
- PT/OT; WBAT. Posterior hip precautions will be advised
Post-operative somnolence in setting of anesthesia, underlying dementia
- CT head
- monitor mentation
Possible UTI
- start empiric Rocephin, day 1, pending cultures
Acute anemia, multifactorial due to acute blood loss and hemodilution
- evaluate Hb in AM, may need transfusion
Transient hypoxia
- CXR negative
- weaned to RA
Senile Dementia with Behavioral Disturbance
Bipolar Depression
- Stable. continue usual psychotropic medications.
Benign Hypertension
- Stable. continue propranolol.
DVT Prophylaxis: Lovenox
Code Status: DNR/DNI
Anticipated Discharge: > 48 hours
Subjective/Interval History
-
Date of Service: February 05, 2025
remains somnolent, but opens eyes
Objective Data
-
Labs:
Laboratory Results
02/05/25
05:56
WBC 8.3
Hgb 8.8 L D
Hct 27.7 L
Plt Count 163
Sodium 141
Potassium 4.2
Chloride 108 H
Carbon Dioxide 30
BUN 35 H
Creatinine 0.6
Glucose 116 H
Calcium 8.8
Vital Signs:
Vital Signs
Temp Pulse Resp BP Pulse Ox
98.5 F 90 17 111/59 100
02/05/25 07:17 02/05/25 07:17 02/05/25 07:17 02/05/25 07:17 02/05/25 07:17
I&O
02/04/25 02/05/25 02/06/25
06:59 06:59 06:59
Intake Total 750 / 750 1000 / 1000
Output Total 550 / 550 0 / 0
Balance 200 / 200 1000 / 1000
Physical Exam
-
General: No Apparent Distress
HEENT: Normocephalic and Atraumatic
Respiratory: Negative Wheezes
Cardiac: Regular Rhythm
GI: Soft
Musculoskeletal: No Edema
Neuro: Awake
Psych: Calm
Data Reviewed
-
Total Time Spent with Patient (in minutes): 42
Labs: Labs Reviewed by me
[2025-02-05 09:07] LABS: Urine Albumin 2+ (Neg - Trace); Urine Bilirubin Negative (Negative); Urine Character Slightly Cloudy (Clear); Urine Color Yellow; Urine Glucose Negative (Negative); Urine Ketone 2+ (Negative); Urine Leukocyte 1+ (Negative); Urine Nitrite Negative (Negative); Urine Occult Blood 3+ (Negative); Urine Specific Gravity 1.025 (<1.030); Urine Urobilinogen Negative (Neg - 1+)
[2025-02-05 09:16] LABS: Urine Squamous Cell 16-20 /LPF (Few)
[2025-02-05 09:17] LABS: Urine Bacteria Many (Negative)
[2025-02-05 09:18] LABS: Urine Mucus Few
[2025-02-05 10:44] VITALS: BP 112/66; PULSE 81; O2SAT 100
[2025-02-05 10:46] VITALS: BP 112/66; PULSE 81; O2SAT 100
[2025-02-05] MEDS: TYLENOL PO ×3 (11:39→21:43)
[2025-02-05] MEDS: LEXAPRO PO (11:39)
[2025-02-05] MEDS: COLACE PO ×2 (11:39→21:42)
--- NOTE | 2025-02-05 11:43 | CM ---
Reviewed the chart notes and spoke with the patient's daughter at the bedside. Patient to lethargic to participate in PT/OT. CM continues to be available to patient/family and is monitoring medical plan for needs at discharge.
Plan: Discharge to SNF/rehab once able to participate in PT/OT and bed secured. No prior auth will be required.
[2025-02-05] MEDS: NSS 1000 IV (12:59)
[2025-02-05] MEDS: STERILE WATER FOR INJECTION 10 ML IV (13:00)
[2025-02-05] MEDS: ROCEPHIN 1000 MG IV (13:01)
[2025-02-05] MEDS: LOVENOX SC (14:12)
[2025-02-05 16:25] VITALS: BP 124/74
[2025-02-05] MEDS: LIPITOR PO (21:42)
[2025-02-05] MEDS: INDERAL LA PO (21:42)
[2025-02-05] MEDS: ARICEPT PO (21:42)
[2025-02-05] MEDS: MELATONIN PO (21:43)
[2025-02-05] MEDS: ZYPREXA PO (21:44)
[2025-02-05 23:19] VITALS: BP 147/49
[2025-02-06 07:25] VITALS: BP 139/60
[2025-02-06 07:29] LABS: Hemoglobin 7.9 g/dL (12.0-16.0); Mean Corp Hgb Conc. 31.6 g/dL (33.0-37.0); Mean Corpuscular Hgb 30.6 pg (27.0-31.0); Mean Corpuscular Volume 96.9 fL (81.0-99.0); Platelet Count 170 10^3/uL (130-400); Red Blood Cell Count 2.58 10^6/uL (4.20-5.40); Red Cell Dist. Width 14.7 % (11.5-14.5); White Blood Cell Count 7.7 10^3/uL (4.8-10.8)
--- NOTE | 2025-02-06 07:31 | W.PN.ORTHO ---
Today's Communication / Plan
-
89-year-old female history of dementia postop day 3 status post left hip hemiarthroplasty for displaced femoral neck fracture
Weightbearing as tolerated left lower extremity
PT OT
Pain control
DVT prophylaxis: Recommend Lovenox renally dosed x 28 days.
Medical management per primary team
Acute blood loss anemia: Continue to monitor and transfuse as indicated
Plan follow-up with myself outpatient in 2 to 3 weeks for repeat evaluation and removal of amrik
Subjective
.
.:
Patient resting comfortably. Verbalizes no complaints. No documented acute overnight events.
Vital Signs and Labs
.
Vital Signs and Labs:
Lab Results
02/06/25 05:30
Temp Pulse Resp BP Pulse Ox
99.3 F 84 18 147/49 98
02/05/25 23:19 02/05/25 23:19 02/05/25 23:19 02/05/25 23:19 02/05/25 23:19
Physical Exam
-
Musculoskeletal left lower extremity
Leg lengths approximately equal
Incision visualized without active drainage, dressing without bloody drainage this morning after being changed overnight
Post cap refill distally
Unable to comply with detailed sensory examination
[2025-02-06 07:58] LABS: Blood Urea Nitrogen 26 mg/dl (7-17); Calcium 8.6 mg/dl (8.4-10.2); Carbon Dioxide 29 mmol/L (22-30); Chloride 108 mmol/L (98-107); Estimated Creatinine Clearance 51 ml/min; Glucose 101 mg/dl (70-99); Potassium 3.8 mmol/L (3.5-5.1); Sodium 143 mmol/L (135-145); eGFR > 60.00
[2025-02-06] MEDS: LEXAPRO PO (09:12)
[2025-02-06] MEDS: TYLENOL PO ×2 (09:12→16:36)
[2025-02-06] MEDS: COLACE PO ×2 (09:12→23:13)
--- NOTE | 2025-02-06 11:21 | CM ---
Reviewed the chart notes. CM spoke with RN. Lethargy continues. CM continues to be available to patient/family and is monitoring medical plan for needs at discharge.
Plan: Discharge plans will depend on the patient's progress.
[2025-02-06 11:26] VITALS: BP 146/59
[2025-02-06 11:46] VITALS: BP 149/63
--- NOTE | 2025-02-06 13:25 | W.PN.HOSP.TC ---
Today's Communication/Plan
-
further metabolic workup for mental status
monitor mentation
PT/OT as able
stop Abx (urine culture negative)
Assessment / Plan
Assessment / Plan
Assessment:
Mechanical fall, with traumatic left Femoral Fracture
- Xray: ACUTE SUBCAPITAL FRACTURE of the LEFT FEMORAL NECK.
- Ortho following
- s/p Cemented left hip hemiarthroplasty 02/03
- continue pain control
- DVT ppx: Lovenox
- PT/OT; WBAT. Posterior hip precautions will be advised
Post-operative somnolence in setting of anesthesia, underlying dementia
- CT head negative
- metabolic workup
- monitor mentation
Possible UTI
- but culture negative; stop IV Abx.
Acute anemia, multifactorial due to acute blood loss and hemodilution
- Hb 7.9 - transfuse 1 unit PRBC today
Transient hypoxia
- CXR negative
- weaned to RA
Senile Dementia with Behavioral Disturbance
Bipolar Depression
- Stable. continue usual psychotropic medications.
Benign Hypertension
- Stable. continue propranolol.
DVT Prophylaxis: Lovenox
Code Status: DNR/DNI
Anticipated Discharge: > 48 hours
Subjective/Interval History
-
Date of Service: February 06, 2025
resting comfortably
eyes more awake today, less somnolent
Objective Data
-
Labs:
Laboratory Results
02/06/25
05:30
WBC 7.7
Hgb 7.9 L
Hct 25.0 L
Plt Count 170
Sodium 143
Potassium 3.8
Chloride 108 H
Carbon Dioxide 29
BUN 26 H
Creatinine 0.5 L
Glucose 101 H
Calcium 8.6
Vital Signs:
Vital Signs
Temp Pulse Resp BP Pulse Ox
98.9 F 81 16 149/63 100
02/06/25 11:46 02/06/25 11:46 02/06/25 11:26 02/06/25 11:46 02/06/25 11:26
I&O
02/05/25 02/06/25 02/07/25
06:59 06:59 06:59
Intake Total 1000 / 1000 630 / 630 0 / 0
Output Total 0 / 0
Balance 1000 / 1000 630 / 630 0 / 0
Physical Exam
-
General: No Apparent Distress
HEENT: Normocephalic and Atraumatic
Respiratory: Negative Wheezes
Cardiac: Regular Rhythm and S1/S2
GI: Soft
Neuro: Awake
Psych: Calm
Data Reviewed
-
Total Time Spent with Patient (in minutes): 42
Labs: Labs Reviewed by me
[2025-02-06 14:55] VITALS: BP 156/89
[2025-02-06 15:10] VITALS: BP 129/84
[2025-02-06] MEDS: STERILE WATER FOR INJECTION IV (15:22)
[2025-02-06] MEDS: ROCEPHIN IV (15:22)
[2025-02-06] MEDS: TYLENOL 1000 MG PO (21:50)
[2025-02-06] MEDS: ZYPREXA 2.5 MG PO (21:50)
[2025-02-06] MEDS: ARICEPT 10 MG PO (21:50)
[2025-02-06 23:20] VITALS: BP 171/79
[2025-02-06] MEDS: LIPITOR 20 MG PO (23:37)
[2025-02-06] MEDS: INDERAL LA 60 MG PO (23:38)
[2025-02-06] MEDS: MELATONIN 3 MG PO (23:38)
--- NOTE | 2025-02-07 00:01 | PTCARENOTE ---
pt was able to take meds in apple sauce. pt was also fed dinner and consumed ~20/25%. No aspiration noted. Care ongoing.
[2025-02-07 01:30] VITALS: BP 150/69
[2025-02-07 06:35] LABS: Ammonia < 9 umol/L (9-30)
[2025-02-07 07:01] LABS: Blood Urea Nitrogen 28 mg/dl (7-17); Calcium 9.2 mg/dl (8.4-10.2); Carbon Dioxide 31 mmol/L (22-30); Chloride 108 mmol/L (98-107); Estimated Creatinine Clearance 51 ml/min; Glucose 126 mg/dl (70-99); Potassium 3.6 mmol/L (3.5-5.1); Sodium 145 mmol/L (135-145); eGFR > 60.00
[2025-02-07 07:18] LABS: Hematocrit 29.4 % (37.0-47.0); Hemoglobin 9.7 g/dL (12.0-16.0); Mean Corpuscular Hgb 30.1 pg (27.0-31.0); Mean Corpuscular Volume 91.3 fL (81.0-99.0); Mean Platelet Volume 9.7 fL (7.4-10.4); Platelet Count 191 10^3/uL (130-400); Red Blood Cell Count 3.22 10^6/uL (4.20-5.40); Red Cell Dist. Width 16.1 % (11.5-14.5)
[2025-02-07 07:26] LABS: TSH Reflex To Free T4 0.41 uIU/ml (0.47-4.68)
[2025-02-07 07:40] VITALS: BP 197/76
[2025-02-07 07:53] LABS: Free T4 1.67 ng/dl (0.78-2.19)
[2025-02-07 08:02] LABS: Folate 4.1 ng/ml (2.76-20); Vitamin B12 940 pg/ml (239-931)
--- NOTE | 2025-02-07 09:38 | W.PN.HOSP.TC ---
Today's Communication/Plan
-
dc planning to SNF
Assessment / Plan
Assessment / Plan
Assessment:
Mechanical fall, with traumatic left Femoral Fracture
- Xray: ACUTE SUBCAPITAL FRACTURE of the LEFT FEMORAL NECK.
- Ortho following
- s/p Cemented left hip hemiarthroplasty 02/03
- continue pain control
- DVT ppx: Lovenox
- PT/OT; WBAT. Posterior hip precautions will be advised
Post-operative somnolence in setting of anesthesia, underlying dementia
- CT head negative
- metabolic workup negative
- monitor mentation; improving daily
Possible UTI
- but culture negative; stop IV Abx.
Acute anemia, multifactorial due to acute blood loss and hemodilution
- Hb 9.7 s/p 1 unit PRBC
Transient hypoxia
- CXR negative
- weaned to RA
Senile Dementia with Behavioral Disturbance
Bipolar Depression
- Stable. continue usual psychotropic medications.
Benign Hypertension
- Stable. continue propranolol.
DVT Prophylaxis: Lovenox
Code Status: DNR/DNI
Anticipated Discharge: 24 - 48 hours
Subjective/Interval History
-
Date of Service: February 07, 2025
more alert this morning, able to state name and declare she is hungry
Objective Data
-
Labs:
Laboratory Results
02/07/25
06:07
WBC 7.0
Hgb 9.7 L D
Hct 29.4 L
Plt Count 191
Sodium 145
Potassium 3.6
Chloride 108 H
Carbon Dioxide 31 H
BUN 28 H
Creatinine 0.6
Glucose 126 H
Calcium 9.2
Vital Signs:
Vital Signs
Temp Pulse Resp BP Pulse Ox
98.0 F 63 16 197/76 93
02/07/25 07:40 02/07/25 07:40 02/07/25 07:40 02/07/25 07:40 02/07/25 07:40
I&O
02/06/25 02/07/25 02/08/25
06:59 06:59 06:59
Intake Total 630 / 630 450 / 450
Balance 630 / 630 450 / 450
Physical Exam
-
General: No Apparent Distress
HEENT: Normocephalic and Atraumatic
Respiratory: Negative Wheezes
Cardiac: Regular Rhythm and S1/S2
GI: Soft
Genito-urinary: No Costovertebral Tender
Neuro: AO x 3
Psych: Calm
Data Reviewed
-
Total Time Spent with Patient (in minutes): 42
Labs: Labs Reviewed by me
[2025-02-07] MEDS: LEXAPRO 10 MG PO (10:32)
[2025-02-07] MEDS: COLACE 100 MG PO ×2 (10:32→19:58)
[2025-02-07] MEDS: TYLENOL 1000 MG PO ×3 (10:32→21:20)
[2025-02-07 12:00] VITALS: BP 182/85
--- NOTE | 2025-02-07 15:12 | CM ---
Reviewed the chart notes. Patient mentation is slowly improving. CM continues to be available to patient/family and is monitoring medical plan for needs at discharge.
Plan: Discharge to SNF/rehab once medically cleared and able to participate in PT/OT sessions. Referral sent via [facility] to [facility] and [facility].
[2025-02-07 15:26] VITALS: BP 161/71
[2025-02-07] MEDS: PROCARDIA XL (EXTENDED RELEASE) 30 MG PO (16:17)
[2025-02-07] MEDS: LIPITOR 20 MG PO (21:20)
[2025-02-07] MEDS: MELATONIN 3 MG PO (21:21)
[2025-02-07] MEDS: ZYPREXA 2.5 MG PO (21:21)
[2025-02-07] MEDS: INDERAL LA 60 MG PO (21:21)
[2025-02-07] MEDS: ARICEPT 10 MG PO (21:21)
[2025-02-08 00:46] VITALS: BP 136/71
[2025-02-08 02:57] VITALS: BP 130/62
[2025-02-08 06:29] LABS: Hematocrit 30.8 % (37.0-47.0); Hemoglobin 9.9 g/dL (12.0-16.0); Mean Corp Hgb Conc. 32.1 g/dL (33.0-37.0); Mean Corpuscular Hgb 29.6 pg (27.0-31.0); Mean Corpuscular Volume 92.2 fL (81.0-99.0); Mean Platelet Volume 9.4 fL (7.4-10.4); Platelet Count 245 10^3/uL (130-400); Red Blood Cell Count 3.34 10^6/uL (4.20-5.40); Red Cell Dist. Width 16.1 % (11.5-14.5)
[2025-02-08 06:43] LABS: Blood Urea Nitrogen 32 mg/dl (7-17); Calcium 9.4 mg/dl (8.4-10.2); Carbon Dioxide 34 mmol/L (22-30); Chloride 108 mmol/L (98-107); Estimated Creatinine Clearance 51 ml/min; Glucose 120 mg/dl (70-99); Potassium 3.9 mmol/L (3.5-5.1); Sodium 144 mmol/L (135-145); eGFR > 60.00
[2025-02-08 07:41] VITALS: BP 140/66
[2025-02-08] MEDS: TYLENOL 1000 MG PO ×3 (09:05→22:15)
[2025-02-08] MEDS: PROCARDIA XL (EXTENDED RELEASE) 30 MG PO (09:06)
[2025-02-08] MEDS: COLACE 100 MG PO ×2 (09:06→20:49)
[2025-02-08] MEDS: LEXAPRO 10 MG PO (09:07)
--- NOTE | 2025-02-08 09:50 | W.PN.HOSP.TC ---
Today's Communication/Plan
-
encourage wakefulness during day, activity, PT/OT
Assessment / Plan
Assessment / Plan
Assessment:
Mechanical fall, with traumatic left Femoral Fracture
- Xray: ACUTE SUBCAPITAL FRACTURE of the LEFT FEMORAL NECK.
- Ortho following
- s/p Cemented left hip hemiarthroplasty 02/03
- continue pain control
- DVT ppx: Lovenox
- PT/OT; WBAT. Posterior hip precautions will be advised
Post-operative somnolence in setting of anesthesia, underlying dementia
- CT head negative
- metabolic workup negative
- monitor mentation; improving slowly
Possible UTI
- but culture negative; stop IV Abx.
Acute anemia, multifactorial due to acute blood loss and hemodilution
- Hb 9.9 s/p 1 unit PRBC
Transient hypoxia
- CXR negative
- weaned to RA
Senile Dementia with Behavioral Disturbance
Bipolar Depression
- Stable. continue usual psychotropic medications.
Benign Hypertension
- Stable. continue propranolol.
DVT Prophylaxis: Lovenox
Code Status: DNR/DNI
Anticipated Discharge: > 48 hours
Subjective/Interval History
-
Date of Service: February 08, 2025
no overnight events
Objective Data
-
Labs:
Laboratory Results
02/08/25
05:43
WBC 9.0
Hgb 9.9 L
Hct 30.8 L
Plt Count 245 D
Sodium 144
Potassium 3.9
Chloride 108 H
Carbon Dioxide 34 H
BUN 32 H
Creatinine 0.5 L
Glucose 120 H
Calcium 9.4
Vital Signs:
Vital Signs
Temp Pulse Resp BP Pulse Ox
97.6 F 84 16 140/66 95
02/08/25 07:41 02/08/25 09:06 02/08/25 07:41 02/08/25 09:06 02/08/25 07:41
I&O
02/07/25 02/08/25 02/09/25
06:59 06:59 06:59
Intake Total 450 / 450 180 / 180
Balance 450 / 450 180 / 180
Physical Exam
-
General: No Apparent Distress
HEENT: Normocephalic and Atraumatic
Respiratory: Negative Wheezes
Cardiac: Regular Rhythm
GI: Soft
Genito-urinary: No Costovertebral Tender
Neuro: Awake
Psych: Calm
Data Reviewed
-
Total Time Spent with Patient (in minutes): 41
Labs: Labs Reviewed by me
[2025-02-08 15:30] VITALS: BP 141/61
[2025-02-08] MEDS: MELATONIN 3 MG PO (22:15)
[2025-02-08] MEDS: ARICEPT 10 MG PO (22:15)
[2025-02-08] MEDS: ZYPREXA 2.5 MG PO (22:15)
[2025-02-08] MEDS: LIPITOR 20 MG PO (22:15)
[2025-02-08] MEDS: INDERAL LA 60 MG PO (22:19)
[2025-02-08 23:00] VITALS: BP 150/60
[2025-02-09 06:08] LABS: Hematocrit 28.2 % (37.0-47.0); Hemoglobin 9.2 g/dL (12.0-16.0); Mean Corp Hgb Conc. 32.6 g/dL (33.0-37.0); Mean Corpuscular Volume 91.9 fL (81.0-99.0); Mean Platelet Volume 9.1 fL (7.4-10.4); Platelet Count 276 10^3/uL (130-400); Red Blood Cell Count 3.07 10^6/uL (4.20-5.40); Red Cell Dist. Width 15.8 % (11.5-14.5); White Blood Cell Count 9.1 10^3/uL (4.8-10.8)
[2025-02-09 06:37] LABS: Blood Urea Nitrogen 28 mg/dl (7-17); Calcium 8.9 mg/dl (8.4-10.2); Carbon Dioxide 34 mmol/L (22-30); Chloride 106 mmol/L (98-107); Estimated Creatinine Clearance 51 ml/min; Glucose 106 mg/dl (70-99); Potassium 3.5 mmol/L (3.5-5.1); Sodium 145 mmol/L (135-145); eGFR > 60.00
[2025-02-09 07:30] VITALS: BP 137/55
[2025-02-09] MEDS: COLACE 100 MG PO (08:07)
[2025-02-09] MEDS: PROCARDIA XL (EXTENDED RELEASE) 30 MG PO (08:07)
[2025-02-09] MEDS: LEXAPRO 10 MG PO (08:08)
[2025-02-09] MEDS: TYLENOL 1000 MG PO ×3 (08:08→21:45)
--- NOTE | 2025-02-09 09:18 | W.PN.HOSP.TC ---
Today's Communication/Plan
-
try OOBTC
increase bowel regimen
DC planning to SNF
Assessment / Plan
Assessment / Plan
Assessment:
Mechanical fall, with traumatic left Femoral Fracture
- Xray: ACUTE SUBCAPITAL FRACTURE of the LEFT FEMORAL NECK.
- Ortho following
- s/p Cemented left hip hemiarthroplasty 02/03
- continue pain control
- DVT ppx: Lovenox
- PT/OT; WBAT. Posterior hip precautions will be advised
Post-operative somnolence in setting of anesthesia, underlying dementia
- CT head negative
- metabolic workup negative
- monitor mentation; improving slowly
- encourage wakefulness during day, stimulate with music or TV.
- encourage OOBTC
Possible UTI
- but culture negative; stop IV Abx.
Acute anemia, multifactorial due to acute blood loss and hemodilution
- Hb 9.2 s/p 1 unit PRBC
Transient hypoxia
- CXR negative
- weaned to RA
Senile Dementia with Behavioral Disturbance
Bipolar Depression
- Stable. continue usual psychotropic medications.
Benign Hypertension
- Stable. continue propranolol.
Constipation
- increase bowel regimen
DVT Prophylaxis: Lovenox
Code Status: DNR/DNI
Anticipated Discharge: 24 - 48 hours
Subjective/Interval History
-
Date of Service: February 09, 2025
sleepy but easily arousable
denies pain
Objective Data
-
Labs:
Laboratory Results
02/09/25
04:59
WBC 9.1
Hgb 9.2 L
Hct 28.2 L
Plt Count 276
Sodium 145
Potassium 3.5
Chloride 106
Carbon Dioxide 34 H
BUN 28 H
Creatinine 0.5 L
Glucose 106 H
Calcium 8.9
Vital Signs:
Vital Signs
Temp Pulse Resp BP Pulse Ox
98.4 F 60 16 137/55 98
02/09/25 07:30 02/09/25 08:07 02/09/25 07:30 02/09/25 08:07 02/09/25 07:30
I&O
02/08/25 02/09/25 02/10/25
06:59 06:59 06:59
Intake Total 180 / 180 240 / 240
Balance 180 / 180 240 / 240
Physical Exam
-
General: No Apparent Distress
HEENT: Normocephalic and Atraumatic
Respiratory: Negative Wheezes
Cardiac: Regular Rhythm
GI: Soft
Neuro: AO x 3
Psych: Apparent Dementia
Data Reviewed
-
Total Time Spent with Patient (in minutes): 41
Labs: Labs Reviewed by me
[2025-02-09] MEDS: MIRALAX 17 GRAMS PO (10:54)
[2025-02-09] MEDS: SENOKOT 8.6 MG PO ×2 (10:54→20:08)
[2025-02-09 15:40] VITALS: BP 128/50
[2025-02-09 15:44] VITALS: BP 128/50; PULSE 69; O2SAT 96
[2025-02-09 15:45] VITALS: BP 128/56; PULSE 69
--- NOTE | 2025-02-09 18:30 | PTCARENOTE ---
Patient much more alert by end of shift. Is communicating in full sentences, is oriented to person and place, smiling, eating, and keeping eyes open.
[2025-02-09] MEDS: ZYPREXA 2.5 MG PO (21:45)
[2025-02-09] MEDS: MELATONIN 3 MG PO (21:45)
[2025-02-09] MEDS: ARICEPT 10 MG PO (21:45)
[2025-02-09] MEDS: LIPITOR 20 MG PO (21:45)
[2025-02-09] MEDS: INDERAL LA 60 MG PO (21:45)
[2025-02-09 22:58] VITALS: BP 140/50
[2025-02-10 06:31] LABS: Hemoglobin 9.8 g/dL (12.0-16.0); Mean Corp Hgb Conc. 31.6 g/dL (33.0-37.0); Mean Corpuscular Hgb 29.4 pg (27.0-31.0); Mean Corpuscular Volume 93.1 fL (81.0-99.0); Mean Platelet Volume 8.8 fL (7.4-10.4); Platelet Count 297 10^3/uL (130-400); Red Blood Cell Count 3.33 10^6/uL (4.20-5.40); White Blood Cell Count 9.2 10^3/uL (4.8-10.8)
[2025-02-10 06:58] LABS: Blood Urea Nitrogen 34 mg/dl (7-17); Calcium 9.3 mg/dl (8.4-10.2); Carbon Dioxide 33 mmol/L (22-30); Chloride 105 mmol/L (98-107); Estimated Creatinine Clearance 51 ml/min; Glucose 105 mg/dl (70-99); Potassium 3.7 mmol/L (3.5-5.1); Sodium 145 mmol/L (135-145); eGFR > 60.00
[2025-02-10 07:05] VITALS: BP 158/72
[2025-02-10] MEDS: MIRALAX 17 GRAMS PO (09:13)
[2025-02-10] MEDS: TYLENOL 1000 MG PO ×3 (09:13→22:53)
[2025-02-10] MEDS: PROCARDIA XL (EXTENDED RELEASE) 30 MG PO (09:13)
[2025-02-10] MEDS: LEXAPRO 10 MG PO (09:14)
[2025-02-10] MEDS: LOVENOX 40 MG SC (09:14)
[2025-02-10] MEDS: SENOKOT 8.6 MG PO ×2 (09:14→20:25)
--- NOTE | 2025-02-10 09:26 | CM ---
Addendum entered by Marci Bess RN 02/10/25 15:13:
CM updated daughter that patient will need bowel movement prior to discharge. CM updated admission coordinator at [facility].
Addendum entered by Marci Bess RN 02/10/25 12:22:
Patient medically ready for transfer.
[facility]
REPORT
[phone]

Addendum entered by Marci Bess RN 02/10/25 11:26:
[facility] can accept patient today. CM spoke with patient's daughter who stated that she has concerns that patient cannot participate in PT due to lethargy. CM updated hospitalist that patient's daughter has questions regarding patient's lethargy.
Addendum entered by Marci Bess RN 02/10/25 10:25:
CM was updated that patient is medically ready for discharge today. CM updated [facility] with discharge readiness. CM will await admission coordinator response.
Original Note:
CM reviewed medical records. CM noted patient increasingly more participatory with PT. CM will continue to follow for needs.
PLAN: SNF, referrals sent to [facility].
[2025-02-10 10:40] VITALS: BP 124/46; BP 135/48; PULSE 63; PULSE 75; O2SAT 97
[2025-02-10 11:35] VITALS: BP 135/48; PULSE 63; O2SAT 97
--- NOTE | 2025-02-10 12:16 | W.PN.HOSP.TC ---
Today's Communication/Plan
-
OK for DC to SNF today
Assessment / Plan
Assessment / Plan
Assessment:
Mechanical fall, with traumatic left Femoral Fracture
- Xray: ACUTE SUBCAPITAL FRACTURE of the LEFT FEMORAL NECK.
- Ortho following
- s/p Cemented left hip hemiarthroplasty 02/03
- continue pain control
- DVT ppx: Lovenox
- PT/OT; WBAT. Posterior hip precautions will be advised
Post-operative somnolence in setting of anesthesia, underlying dementia
- CT head negative
- metabolic workup negative
- monitor mentation; improving slowly
- encourage wakefulness during day, stimulate with music or TV.
- encourage OOBTC
-patient improving; worked with PT today - OK for DC to SNF. Discussed plan with daughter, that patient will only get weaker if stays in hospital longer.
Possible UTI
- but culture negative; stop IV Abx.
Acute anemia, multifactorial due to acute blood loss and hemodilution
- Hb 9.2 s/p 1 unit PRBC
Transient hypoxia
- CXR negative
- weaned to RA
Senile Dementia with Behavioral Disturbance
Bipolar Depression
- Stable. continue usual psychotropic medications.
Benign Hypertension
- Stable. continue propranolol.
Constipation
- increase bowel regimen
DVT Prophylaxis: Lovenox
Code Status: DNR/DNI
Anticipated Discharge: Today
Subjective/Interval History
-
Date of Service: February 10, 2025
no new complaints
Objective Data
-
Labs:
Laboratory Results
02/10/25
06:00
WBC 9.2
Hgb 9.8 L
Hct 31.0 L
Plt Count 297
Sodium 145
Potassium 3.7
Chloride 105
Carbon Dioxide 33 H
BUN 34 H
Creatinine 0.5 L
Glucose 105 H
Calcium 9.3
Vital Signs:
Vital Signs
Temp Pulse Resp BP Pulse Ox
97.8 F 65 14 158/72 96
02/10/25 07:05 02/10/25 07:05 02/10/25 07:05 02/10/25 07:05 02/10/25 09:12
I&O
02/09/25 02/10/25 02/11/25
06:59 06:59 06:59
Intake Total 240 / 240 1040 / 1040
Balance 240 / 240 1040 / 1040
Review of Systems
-
Unable to obtain full review of systems at this time due to: Dementia
History Source: Patient
Physical Exam
-
General: No Apparent Distress
HEENT: Normocephalic and Atraumatic
Respiratory: Negative Wheezes
Cardiac: Regular Rhythm
GI: Soft
Neuro: AO x 3
Psych: Calm and Apparent Dementia
Data Reviewed
-
Diagnostic Radiology: Report Reviewed by me
Labs: Labs Reviewed by me
--- NOTE | 2025-02-10 12:31 | W.DS.TRANS ---
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
-
Discharge Instructions:
Discharge Diagnosis/Procedures Left Hip Fracture; s/p Cemented left hip
hemiarthroplasty 02/03
Diet Regular
Activity As tolerated
Additional Activity Weightbearing as tolerated left lower extremity
Driving Restrictions No driving
Bathing Restrictions None
Other Services PT,OT
Instructions:
Stand-Alone Forms:
Changes to Home Medications: Yes
Discharge Medications:
DC Medications w/original date entered in [employer]
acetaminophen 325 mg tablet (Tylenol) 650 mg PO BID 02/02/25
atorvastatin 20 mg tablet 20 mg PO HS 02/02/25
carbamide peroxide 6.5 % ear drops (Debrox) 4 drp EACH EAR WE 02/02/25
cholecalciferol (vitamin D3) 25 mcg (1,000 unit) tablet 25 mcg PO DAILY 02/02/25
cyanocobalamin (vitamin B-12) 500 mcg tablet 1,000 mcg PO DAILY 02/02/25
donepezil 10 mg tablet 10 mg PO HS 02/02/25
escitalopram oxalate 10 mg tablet (Lexapro) 10 mg PO DAILY 02/02/25
guaifenesin 100 mg/5 mL oral liquid 200 mg PO Q4H PRN cough 02/02/25
melatonin 3 mg tablet 3 mg PO HS 02/02/25
olanzapine 2.5 mg tablet 2.5 mg PO HS 02/02/25
propranolol 60 mg tablet 60 mg PO HS 02/02/25
acetaminophen 500 mg tablet (Tylenol Extra Strength) 1,000 mg (2 x 500 mg) PO TID #21 tabs 02/10/25
bisacodyl 10 mg rectal suppository (Dulcolax (bisacodyl)) 10 mg PA DAILY PRN constipation #12 ea 02/10/25
enoxaparin 40 mg/0.4 mL subcutaneous syringe 40 mg (0.4 mL) SC DAILY #27 mL 02/10/25
nifedipine 30 mg tablet,extended release 30 mg PO DAILY #30 tabs 02/10/25
polyethylene glycol 3350 17 gram oral powder packet 17 g PO DAILY #14 ea 02/10/25
sennosides 8.6 mg tablet (Andreea-marty) 8.6 mg PO BID #14 tabs 02/10/25
Home Medication Changes
You have been taking Tylenol for pain in the hospital. You have not required oxycodone, which can affect your mentation. Continue Tylenol 1G 3x/day over next week then take as needed.
You are started on Nifedipine 30mg daily for blood pressure control.
You have 27 more days of Lovenox for DVT Prophylaxis.
You are prescribed Miralax, Senna and Dulcolax suppository as needed for constipation. Hold bowel regimen for loose stools
Pending Results: No
[2025-02-10] MEDS: DULCOLAX 10 MG RECTAL (12:49)
--- NOTE | 2025-02-10 15:37 | W.DCSUMMARY ---
Addendum entered and electronically signed by Cheryl Jacobs MD 02/11/25 11:31:
Date of discharge 02/11/25.
Patient required an extra evening in the hospital to treat constipation.
Original Note:
Discharge Summary
Discharge Data
Date of Admission: 02/02/25
Date of Discharge: 02/10/25
-
Pending Results: No
Hospital Course
Discharging Physician : Dr. Cheryl Jacobs
Disposition : SNF
Primary care physician : Dr. Donna De Guzman
Principal Discharge diagnosis : ACUTE SUBCAPITAL FRACTURE of the LEFT FEMORAL NECK status post left hip hemiarthroplasty 02/03/25
Hospital Course :
Ms. Eleonora Mercer is a 89 yo woman with hx dementia with behavioral disturbance who reports to the ER post fall for evaluation of left lower extremity pain. She was found to have an acute fracture of the left femoral neck. She was taken to the OR
on 02/03/25 and is status post left hip hemiarthroplasty by Dr. Mayer. Post-op course complicated by significant sedation, attributed to anesthesia and hypoactive delirium. This was work-ed up with head CT (negative) and metabolic work-up which
was negative. Patient's mentation slowly improved. She is eating a great percentage of meals, speaking more and had an improved effort with PT morning prior to discharge. SNF is recommended.
She was treated for constipation prior to discharge and a bowel regimen is prescribed.
Time spent on discharge was 31 minutes.
Important imaging findings :
02/02/25
IMPRESSION:
1. ACUTE SUBCAPITAL FRACTURE of the LEFT FEMORAL NECK.
2. 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
3. Right total hip arthroplasty in place.
4. Severe multilevel lumbar discogenic degenerative disease.
HEAD CT 02/05/25
IMPRESSION:
No acute intracranial abnormalities.
Procedure findings :
Discharge Plan
-
Patient Disposition: [facility]pc/SNF
Discharge Diagnosis/Procedures: Left Hip Fracture; s/p Cemented left hip hemiarthroplasty 02/03
Diet: Regular
Activity: As tolerated
Additional Activity: Weightbearing as tolerated left lower extremity
Driving Restrictions: No driving
Bathing Restrictions: None
Other Services: PT and OT
Referrals:
Donna De Guzman DO [Family Provider] - in less than 1 week
Prakash Mayer MD [Active] - in two weeks
Additional Discharge Medication Instructions: You have been taking Tylenol for pain in the hospital. You have not required oxycodone, which can affect your mentation. Continue Tylenol 1G 3x/day over next week then take as needed.
You are started on Nifedipine 30mg daily for blood pressure control.
You have 27 more days of Lovenox for DVT Prophylaxis.
You are prescribed Miralax, Senna and Dulcolax suppository as needed for constipation. Hold bowel regimen for loose stools
Prescriptions:
New
polyethylene glycol 3350 17 gram Powder In Packet
17 g PO DAILY Qty: 14 0RF
enoxaparin 40 mg/0.4 mL Syringe
40 mg SC DAILY Qty: 27 0RF
nifedipine 30 mg Tablet Extended Release
30 mg PO DAILY Qty: 30 0RF
acetaminophen [Tylenol Extra Strength] 500 mg Tablet
1,000 mg PO TID Qty: 21 0RF
sennosides [Andreea-marty] 8.6 mg Tablet
8.6 mg PO BID Qty: 14 0RF
bisacodyl [Dulcolax (bisacodyl)] 10 mg suppository
10 mg NE DAILY PRN (Reason: constipation) Qty: 12 0RF
Continued
acetaminophen [Tylenol] 325 mg Tablet
650 mg PO BID
atorvastatin 20 mg Tablet
20 mg PO HS
donepezil 10 mg Tablet
10 mg PO HS
propranolol 60 mg Tablet
60 mg PO HS
melatonin 3 mg Tablet
3 mg PO HS
olanzapine 2.5 mg Tablet
2.5 mg PO HS
guaifenesin 100 mg/5 mL Liquid
200 mg PO Q4H PRN (Reason: cough)
cyanocobalamin (vitamin B-12) 500 mcg Tablet
1,000 mcg PO DAILY
Debrox 6.5 % Drops
4 drp EACH EAR WE
escitalopram oxalate [Lexapro] 10 mg Tablet
10 mg PO DAILY
cholecalciferol (vitamin D3) 25 mcg (1,000 unit) Tablet
25 mcg PO DAILY
Discontinued
acetaminophen [Tylenol] 325 mg Tablet
650 mg PO Q6H PRN (Reason: fever/pain)
Discharge Orders:
Discharge Patient (As Directed); Ordered 02/10/25
Ordered By: Cheryl Jacobs
Discharge Date and Time
Print Language: URDU
[2025-02-10 15:45] VITALS: BP 140/56
[2025-02-10] MEDS: ZYPREXA 2.5 MG PO (22:54)
[2025-02-10] MEDS: MELATONIN 3 MG PO (22:54)
[2025-02-10] MEDS: ARICEPT 10 MG PO (22:54)
[2025-02-10] MEDS: LIPITOR 20 MG PO (22:54)
[2025-02-10] MEDS: INDERAL LA 60 MG PO (22:55)
[2025-02-10 23:25] VITALS: BP 164/71
[2025-02-11 07:40] VITALS: BP 165/62
--- NOTE | 2025-02-11 08:58 | CM ---
Reviewed the chart notes and spoke with the patient's daughter Velvet via telephone. IMM reviewed. Anticipate patient to be discharged to [facility] today via BLS. CM continues to be available to patient/family and is monitoring medical plan for needs at
discharge.
Plan: Discharge to [facility] today via BLS.
[2025-02-11] MEDS: PROCARDIA XL (EXTENDED RELEASE) 30 MG PO (09:03)
[2025-02-11] MEDS: TYLENOL 1000 MG PO (09:03)
[2025-02-11] MEDS: MIRALAX 17 GRAMS PO (09:03)
[2025-02-11] MEDS: LEXAPRO 10 MG PO (09:04)
[2025-02-11] MEDS: LOVENOX 40 MG SC (09:04)
[2025-02-11] MEDS: SENOKOT 8.6 MG PO (09:04)
--- NOTE | 2025-02-11 11:29 | W.PN.HOSP.TC ---
Addendum entered and electronically signed by Cheryl Jacobs MD 02/12/25 07:07:
Dementia with acute post operative delirium
-resolving prior to discharge
Original Note:
Today's Communication/Plan
-
Ok for DC today
Assessment / Plan
Assessment / Plan
Assessment:
Mechanical fall, with traumatic left Femoral Fracture
- Xray: ACUTE SUBCAPITAL FRACTURE of the LEFT FEMORAL NECK.
- appreciate Ortho
- s/p Cemented left hip hemiarthroplasty 02/03
- continue pain control
- DVT ppx: Lovenox
- PT/OT; WBAT. Posterior hip precautions will be advised
Post-operative somnolence in setting of anesthesia, underlying dementia
- CT head negative
- metabolic workup negative
- monitor mentation; improving slowly
- encourage wakefulness during day, stimulate with music or TV.
- encourage OOBTC
-patient improving; worked with PT 02/10 - OK for DC to SNF. Discussed plan with daughter, that patient will only get weaker if stays in hospital longer.
Constipation
-s/p BM this AM, now OK for DC to SNF
Possible UTI
- but culture negative; stop IV Abx.
Acute anemia, multifactorial due to acute blood loss and hemodilution
- Hb 9.2 s/p 1 unit PRBC
Transient hypoxia
- CXR negative
- weaned to RA
Senile Dementia with Behavioral Disturbance
Bipolar Depression
- Stable. continue usual psychotropic medications.
Benign Hypertension
- Stable. continue propranolol.
Constipation
- increase bowel regimen
DVT Prophylaxis: Lovenox
Code Status: DNR/DNI
Anticipated Discharge: Today
Subjective/Interval History
-
Date of Service: February 11, 2025
she had a bowel movement earlier today
no active complaints
appears subdued
Objective Data
-
Vital Signs:
Vital Signs
Temp Pulse Resp BP Pulse Ox
99.1 F 68 15 165/62 94
02/11/25 07:40 02/11/25 07:40 02/11/25 07:40 02/11/25 07:40 02/11/25 07:40
I&O
02/10/25 02/11/25 02/12/25
06:59 06:59 06:59
Intake Total 1040 / 1040 350 / 350
Balance 1040 / 1040 350 / 350
Review of Systems
-
Unable to obtain full review of systems at this time due to: Dementia
History Source: Patient
Physical Exam
-
General: No Apparent Distress
HEENT: Normocephalic and Atraumatic
Respiratory: Negative Wheezes
Cardiac: Regular Rhythm
GI: Soft
Neuro: AO x 3
Psych: Calm and Apparent Dementia
Data Reviewed
-
Diagnostic Radiology: Report Reviewed by me
Labs: Labs Reviewed by me
[2025-02-11 11:30] VITALS: BP 130/53
--- NOTE | 2025-02-11 11:30 | W.DS.TRANS ---
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
-
Discharge Instructions:
Discharge Diagnosis/Procedures Left Hip Fracture; s/p Cemented left hip
hemiarthroplasty 02/03
Diet Regular
Activity As tolerated
Additional Activity Weightbearing as tolerated left lower extremity
Driving Restrictions No driving
Bathing Restrictions None
Other Services PT,OT
Instructions:
Stand-Alone Forms:
Changes to Home Medications: Yes
Discharge Medications:
DC Medications w/original date entered in [employer]
acetaminophen 325 mg tablet (Tylenol) 650 mg PO BID 02/02/25
atorvastatin 20 mg tablet 20 mg PO HS 02/02/25
carbamide peroxide 6.5 % ear drops (Debrox) 4 drp EACH EAR WE 02/02/25
cholecalciferol (vitamin D3) 25 mcg (1,000 unit) tablet 25 mcg PO DAILY 02/02/25
cyanocobalamin (vitamin B-12) 500 mcg tablet 1,000 mcg PO DAILY 02/02/25
donepezil 10 mg tablet 10 mg PO HS 02/02/25
escitalopram oxalate 10 mg tablet (Lexapro) 10 mg PO DAILY 02/02/25
guaifenesin 100 mg/5 mL oral liquid 200 mg PO Q4H PRN cough 02/02/25
melatonin 3 mg tablet 3 mg PO HS 02/02/25
olanzapine 2.5 mg tablet 2.5 mg PO HS 02/02/25
propranolol 60 mg tablet 60 mg PO HS 02/02/25
acetaminophen 500 mg tablet (Tylenol Extra Strength) 1,000 mg (2 x 500 mg) PO TID #21 tabs 02/10/25
bisacodyl 10 mg rectal suppository (Dulcolax (bisacodyl)) 10 mg MO DAILY PRN constipation #12 ea 02/10/25
enoxaparin 40 mg/0.4 mL subcutaneous syringe 40 mg (0.4 mL) SC DAILY #27 mL 02/10/25
nifedipine 30 mg tablet,extended release 30 mg PO DAILY #30 tabs 02/10/25
polyethylene glycol 3350 17 gram oral powder packet 17 g PO DAILY #14 ea 02/10/25
sennosides 8.6 mg tablet (Andreea-marty) 8.6 mg PO BID #14 tabs 02/10/25
Home Medication Changes
You have been taking Tylenol for pain in the hospital. You have not required oxycodone, which can affect your mentation. Continue Tylenol 1G 3x/day over next week then take as needed.
You are started on Nifedipine 30mg daily for blood pressure control.
You have 26 more days of Lovenox for DVT Prophylaxis.
You are prescribed Miralax, Senna and Dulcolax suppository as needed for constipation. Hold bowel regimen for loose stools
Pending Results: No
--- NOTE | 2025-02-11 14:24 | PN.CDI ---
CDI
- -
CDI:
Physician Documentation Request
Admit Date: 02/02/25 22:11
Dear Doctor Arlene,
Clinical Indicators:
Patient admitted with left femoral neck fracture; s/p Cemented left hip hemiarthroplasty 02/03.
02/05 PN, 'Post-operative somnolence in setting of anesthesia, underlying dementia'
02/09 (18:30 RN note, 'Patient much more alert by end of shift.'
02/10 Discharge Summary , 'Post-op course complicated by significant sedation, attributed to anesthesia and hypoactive delirium. This was work-ed up with head CT (negative) and metabolic work-up which was negative. Patient's mentation slowly
improved.'
Based on the above, could you clarify in the Progress Notes and Discharge Summary which, if any of the following, is the most likely etiology of the confusion/altered mental status.
Toxic Metabolic Encephalopathy
Dementia with acute post operative delirium
Other, please specify
Use of terms such as suspected, likely, concern for, or probable (associated with a specific diagnosis that is being evaluated, monitored, or treated as if it exists) are acceptable and can be coded in the inpatient setting, when documented at the
time of discharge.
Thank you,
ROBERTO Gunter RN
CDI Specialist
available via tiger text
Please use your independent medical judgment in providing your response.
== END 2025-02-11 13:42 | DRG 522 ==
LOC: 2 SOUTH 22:11
PROVIDERS: Internal Medicine; Nurse Practitioner; Nurse Practitioner Gerontology; ADMITTING PHYSICIAN Hospitalist; ATTENDING PHYSICIAN Student in an Organized Health Care Education/Training Program; CONSULT PHYSICIAN Orthopaedic Surgery; EMERGENCY PHYSICIAN Emergency Medicine; FAMILY PHYSICIAN Family Medicine
PROC: 0SRS0J9 Replacement of Left Hip Joint, Femoral Surface with Synthetic Substitute, Cemented, Open Approach (ICD-10-PCS; 2025-02-03)
DX: S72.012A Unspecified intracapsular fracture of left femur, initial encounter for closed fracture (principal); F03.918 Unspecified dementia, unspecified severity, with other behavioral disturbance; F03.93 Unspecified dementia, unspecified severity, with mood disturbance; F31.30 Bipolar disorder, current episode depressed, mild or moderate severity, unspecified; D62 Acute posthemorrhagic anemia; F05 Delirium due to known physiological condition; K59.00 Constipation, unspecified; M16.12 Unilateral primary osteoarthritis, left hip; Z96.641 Presence of right artificial hip joint; W19.XXXA Unspecified fall, initial encounter; F25.9 Schizoaffective disorder, unspecified; I10 Essential (primary) hypertension; Z85.3 Personal history of malignant neoplasm of breast; E03.9 Hypothyroidism, unspecified; Z90.10 Acquired absence of unspecified breast and nipple; Z66 Do not resuscitate
CPT/HCPCS: 70450; 71045; 73502; 73552; 80048; 80053; 81003; 81015; 82140; 82607; 82746; 82962; 84439; 84443; 85025; 85027; 86850; 86900; 86901; 86920; 87070; 87086; 93005; 96374; 97163; 97167; 97530; 97535; 99285; P9016

== ENCOUNTER → 2025-02-14 11:51 | Outpatient (REF) | payer OTHER, MEDICARE, SELFPAY ==
[2025-02-14 12:34] LABS: % Eosinophils 2.6 % (0-6); % Lymphocytes 22.8 % (20.5-51.1); % Monocytes 7.8 % (1.7-9.3); % Neutrophils 64.8 % (42.2-75.2); Absolute Basophils 0.1 10^3/uL (0-0.2); Absolute Eosinophils 0.2 10^3/uL (0-0.7); Absolute Immature Granulocytes 0.1 10^3/uL (0-0.05); Absolute Lymphocytes 1.6 10^3/uL (1.2-3.4); Absolute Monocytes 0.6 10^3/uL (0.1-0.6); Absolute Neutrophils 4.7 10^3/uL (1.4-6.5); Hematocrit 29.8 % (37.0-47.0); Hemoglobin 9.2 g/dL (12.0-16.0); Mean Corp Hgb Conc. 30.9 g/dL (33.0-37.0); Mean Corpuscular Hgb 29.6 pg (27.0-31.0); Mean Corpuscular Volume 95.8 fL (81.0-99.0); Mean Platelet Volume 9.1 fL (7.4-10.4); Nucleated Red Blood Cells % 0 %; Platelet Count 350 10^3/uL (130-400); Red Blood Cell Count 3.11 10^6/uL (4.20-5.40); Red Cell Dist. Width 16.3 % (11.5-14.5); White Blood Cell Count 7.2 10^3/uL (4.8-10.8)
== END ==
LOC: OLABP 11:51
PROVIDERS: ATTENDING PHYSICIAN Family Medicine
DX: S72.002D Fracture of unspecified part of neck of left femur, subsequent encounter for closed fracture with routine healing (principal); D62 Acute posthemorrhagic anemia; F31.9 Bipolar disorder, unspecified; I10 Essential (primary) hypertension; M51.360 Other intervertebral disc degeneration, lumbar region with discogenic back pain only
CPT/HCPCS: 36415; 85025

== ENCOUNTER → 2025-02-18 10:19 | Outpatient (REF) | payer OTHER, MEDICARE, SELFPAY ==
[2025-02-18 13:00] LABS: % Basophils 0.8 % (0-2); % Eosinophils 2.2 % (0-6); % Lymphocytes 18.4 % (20.5-51.1); % Monocytes 8.4 % (1.7-9.3); % Neutrophils 69.2 % (42.2-75.2); Absolute Basophils 0.1 10^3/uL (0-0.2); Absolute Eosinophils 0.2 10^3/uL (0-0.7); Absolute Immature Granulocytes 0.1 10^3/uL (0-0.05); Absolute Lymphocytes 1.7 10^3/uL (1.2-3.4); Absolute Monocytes 0.8 10^3/uL (0.1-0.6); Absolute Neutrophils 6.4 10^3/uL (1.4-6.5); Hematocrit 29.4 % (37.0-47.0); Mean Corp Hgb Conc. 30.6 g/dL (33.0-37.0); Mean Corpuscular Hgb 29.3 pg (27.0-31.0); Mean Corpuscular Volume 95.8 fL (81.0-99.0); Mean Platelet Volume 9.5 fL (7.4-10.4); Nucleated Red Blood Cells % 0 %; Platelet Count 377 10^3/uL (130-400); Red Blood Cell Count 3.07 10^6/uL (4.20-5.40); Red Cell Dist. Width 16.8 % (11.5-14.5); White Blood Cell Count 9.3 10^3/uL (4.8-10.8)
== END ==
LOC: OLABN 10:19
PROVIDERS: ATTENDING PHYSICIAN Family Medicine
DX: S72.002D Fracture of unspecified part of neck of left femur, subsequent encounter for closed fracture with routine healing (principal); D62 Acute posthemorrhagic anemia; I10 Essential (primary) hypertension; M51.360 Other intervertebral disc degeneration, lumbar region with discogenic back pain only
CPT/HCPCS: 36415; 85025

== ENCOUNTER 2025-02-21 15:07 | Emergency (ER) | payer MEDICARE, OTHER, SELFPAY ==
[2025-02-21] VITALS (16 sets, daily range): BP systolic 95–133; BP diastolic 38–89
--- NOTE | 2025-02-21 15:31 | ED.MUSCINJ ---
HPI-Injury
<Nery Desouza, RESTAURANT SERVICE MANAGER - Last Filed: 02/21/25 18:55>
General
Chief Complaint: Musculo-Skeletal Complaint
Source: patient, ambulance crew and retirement records
Exam Limitations: dementia
Time Seen by Provider: 02/21/25 15:31
Nursing documentation reviewed up to this point in time: agreed with
History of Present Illness-Injury
Initial Injury comments:
89-year-old female from [facility] with history of Alzheimer's dementia, HTN, HLD, depression, schizoaffective disorder bipolar, femoral neck fx left hip w hemiarthroplasty on 02/03, DC'd to [facility] 02/11 presents for staff reportedly noted L leg
rotation and shortening, portable xray at facility showing dislocation.
Past History
<Nery Desouza, RESTAURANT SERVICE MANAGER - Last Filed: 02/21/25 18:55>
Past History
ED Past Medical History: HTN, Hypercholesterolemia, Psychiatric (Bipolar) and Other (Dementia)
ED Past Surgical History: Orthopedic (Left hip replacement on 02/03/2025)
Social History
Tobacco: Non-smoker
Alcohol: None
Drug: None
Living: retirement
Review of Systems
<Nery Desouza, RESTAURANT SERVICE MANAGER - Last Filed: 02/21/25 18:55>
Review of Systems
Allergies reviewed?: Yes
Unable to obtain full review of systems at this time due to: dementia
All Other Systems: ROS reviewed and negative except as documented in HPI and ROS
Musculoskeletal: Reports other (Left leg internally rotated and shortened 18 days post hip replacement)
Phy Exam
<Nery Desouza, RESTAURANT SERVICE MANAGER - Last Filed: 02/21/25 18:55>
Physical Exam
Physical Exam:
GENERAL: No acute distress. A&Ox3.
CONSTITUTIONAL: Afebrile.
EYES: clear, conjunctivae normal
ENMT: moist mucus membranes
RESPIRATORY: Regular respirations, nonlabored, lungs clear.
CARDIOVASCULAR: Regular rate and rhythm, no murmurs, no rubs.
GI: Soft, nontender, normal BS
MUSCULOSKELETAL: Left leg slightly shortened and rotating inward. Well perfused. No edema.
SKIN: Warm, dry, pink
PSYCH: Calm mood and affect. Well kept, interactive and confused/demented
NEUROLOGIC: Awake, alert and oriented to name only. No focal neurological deficits
Injury Course
<Nery Desouza RESTAURANT SERVICE MANAGER - Last Filed: 02/21/25 18:55>
Orders/Labs/Results
Orders:
Orders
02/21/25 15:19
Hip, Left 2-3 Views [CR Hip - LT w/wo Pel 2-3 Vw*] Urgent
Comment:
Reason For Exam: shortened and rotated,recent surgery denies trauma
Include a pelvis x-ray?: Yes
02/21/25 16:54
ASA Classification Routine
Cardiac Monitoring- Treatment ONCE
IV Insert/Care/Rem.- Treatment PRN
Propofol [Diprivan] 80 mg IV NOW STA
02/21/25 17:08
Propofol [Diprivan] 20 ml .ROUTE .STK-MED
02/21/25 17:28
CR Hip - LT without Pel 1 Vw Urgent
Comment:
Reason For Exam: post reduction
02/21/25 17:44
Knee Immobilizer Left-Treatmen ONCE
Bank Teller consulted with Physician
Bank Teller consulted with physician?: Yes
Name of Physician Consulted: Enzo
<Jovon Giraldo, - Last Filed: 02/21/25 17:54>
Orders/Labs/Results
Orders:
Orders
02/21/25 15:19
Hip, Left 2-3 Views [CR Hip - LT w/wo Pel 2-3 Vw*] Urgent
Comment:
Reason For Exam: shortened and rotated,recent surgery denies trauma
Include a pelvis x-ray?: Yes
02/21/25 16:54
ASA Classification Routine
Cardiac Monitoring- Treatment ONCE
IV Insert/Care/Rem.- Treatment PRN
Propofol [Diprivan] 80 mg IV NOW STA
02/21/25 17:08
Propofol [Diprivan] 20 ml .ROUTE .STK-MED
02/21/25 17:28
CR Hip - LT without Pel 1 Vw Urgent
Comment:
Reason For Exam: post reduction
02/21/25 17:44
Knee Immobilizer Left-Treatmen ONCE
Procedures
<Jovon Giraldo, DO - Last Filed: 02/21/25 17:54>
Moderate Sedation
ASA Risk Score: Class II
Chart and allergies reviewed: Yes
Consent for anesthesia obtained: Yes
Time out completed (validating right patient & procedure): Yes
Moderate Sedation Start Time(when first medication is given): 17:25
History of difficult intubation: No
Airway free of obstruction: Yes
Patient has a gag reflex: Yes
Patient is able to open mouth: Yes
Patient has no dentures: Yes
Patient has no loose teeth: Yes
Medication administered by Provider during Moderate Sedation: IV Propofol (mg)
Total dose administered: 80
Time drug administered: 17:25
Moderate Sedation Procedure End Time: 17:35
<Nery Desouza, RESTAURANT SERVICE MANAGER - Last Filed: 02/21/25 18:55>
MDM/Problems Addressed
Differential Diagnosis Includes:
hip dislocation
MDM/Problems Addressed:
89-year-old female from [facility] with history of Alzheimer's dementia, HTN, HLD, depression, schizoaffective disorder bipolar, femoral neck fx left hip w hemiarthroplasty on 02/03, DC'd to [facility] 02/11 presents for staff reportedly noted L leg
rotation and shortening, portable xray at facility showing dislocation.
Patient has dementia and is confused, she denies pain. She is calm
X-ray of the left hip shows a displaced prosthesis
Dr. Giraldo in to evaluate
4:20 p.m.
[address] Orthopedic Dr. Mayer who did the surgery, he requests we reduce the hip, knee immobilizer and abduction pillow
Spoke with daughter Velvet who consents to moderate sedation for hip reduction.
Dr. Mayer in, hip reduced per post reduction film
I called daughter and left message re the procedure and plan to discharge back to [facility]. Left call back number if she had any question.
18:50
Pt back to baseline mental state, stable for discharge
<Jovon Giraldo DO - Last Filed: 02/21/25 17:54>
*Radiology
Radiology exam reviewed: preliminary read by ED provider (left hip xray shows dislocation, repeat xray shows adequate reduction)
*Pulse Oximetry
Patient hypoxic: no
*Plastics Process Hand Interpretation
Rate: normal
Interpretation: normal
Heart Rate: 82
Rhythm: sinus
*Critical Care Note
Total Time (30-74mins, 75-104mins- exclusive of procedures): Not Applicable
Data Reviewed
Review of Other/Old Records Reveals: Records
Source: records (left hip hemiarthroplasty by Dr. Prakash Mayer)
<Jovon Giraldo, - Last Filed: 02/21/25 17:54>
Patient Management
Social determinants of health affecting care: Living situation and Strong social support
Discussion with other providers: Soap Slabber (orthopedics Dr. Mayer performed hip reduction)
Escalation/DeEscalation of care consider admission/obs:
Admit not indicated
ED Attending Note
<Nery Desouza RESTAURANT SERVICE MANAGER - Last Filed: 02/21/25 18:55>
-
Portions of this chart may have been created with voice recognition software.� Occasional wrong word or��sound alike� substitutions may have occurred due to the inherent limitations of voice recognition software.
<Jovon Giraldo, DO - Last Filed: 02/21/25 17:54>
ED Attending Note
Patient seen and examined by attending physician: Yes
ED Attending Note:
I reviewed and agree with history treatment plan by Bonny desouza. Exam revealed 89-year-old female with left hip externally rotated and shortened. Reduced successfully by Dr. Mayer, sedation performed by myself.
Discharge Plan
Departure
Patient Disposition: Intermediate/SNF
Date of Disposition: 02/21/25
Time of Disposition: 18:50
Condition: Fair
Discharge Problem:
Dislocation of hip prosthesis, Dementia
Instructions: Hip Dislocation, MODERATE SEDATION ADULT
Prescriptions:
No Action
acetaminophen [Tylenol] 325 mg Tablet
650 mg PO BID
atorvastatin 20 mg Tablet
20 mg PO HS
donepezil 10 mg Tablet
10 mg PO HS
propranolol 60 mg Tablet
60 mg PO HS
melatonin 3 mg Tablet
3 mg PO HS
olanzapine 2.5 mg Tablet
2.5 mg PO HS
guaifenesin 100 mg/5 mL Liquid
200 mg PO Q4H PRN (Reason: cough)
cyanocobalamin (vitamin B-12) 500 mcg Tablet
1,000 mcg PO DAILY
Debrox 6.5 % Drops
4 drp EACH EAR WE
escitalopram oxalate [Lexapro] 10 mg Tablet
10 mg PO DAILY
cholecalciferol (vitamin D3) 25 mcg (1,000 unit) Tablet
25 mcg PO DAILY
polyethylene glycol 3350 17 gram Powder In Packet
17 g PO DAILY Qty: 14 0RF
enoxaparin 40 mg/0.4 mL Syringe
40 mg SC DAILY Qty: 27 0RF
nifedipine 30 mg Tablet Extended Release
30 mg PO DAILY Qty: 30 0RF
sennosides [Andreea-marty] 8.6 mg Tablet
8.6 mg PO BID Qty: 14 0RF
bisacodyl [Dulcolax (bisacodyl)] 10 mg suppository
10 mg CO DAILY PRN (Reason: constipation) Qty: 12 0RF
magnesium hydroxide [Milk of Magnesia] 400 mg/5 mL Suspension
30 ml PO DAILYPRN PRN (Reason: constipation)
Fleet Enema 19-7 gram/118 mL Enema
118 ml CO DAILYPRN PRN (Reason: constipation)
Referrals:
Letty Cortes DO [Family Provider] -
Prakash Mayer MD [Active] - Keep scheduled appt
Activity Restrictions/Additional Instructions:
Pt was given moderate sedation and hip was rreduced.
Keep the name of her on the abduction pillow in proper place (it was displaced on arrival here).
Make follow up appointment with Dr. Mayer in 2-3 weeks.
I notified her daughter Velvet, of procedure and plan of care.
Interventions
Interventions:
*Risk Screen - Suicide Last Done: 02/21/25 15:11
*General Assessment Last Done: 02/21/25 15:11
*Neglect/Abuse Screening Last Done: 02/21/25 15:11
*ED- Fall Risk Assessment Last Done: 02/21/25 15:11
*ED COVID-19 Vaccine History Last Done: 02/21/25 15:11
ED-Musculoskeletal Assessment Last Done: 02/21/25 15:45
Discharge Date and Time
Print Language: MOHAWK
--- NOTE | 2025-02-21 17:52 | CON.ORTHO ---
Consultation
-
Date/Time Consultation Performed: 02/21/2025 530 PM
Consultation - Orthopedics
History
HPI: 89-year-old female status post recent left hip hemiarthroplasty for displaced femoral neck fracture presented emergency department complaints of inability to bear weight left lower extremity. She was ultimately diagnosed with a dislocated left
hip hemiarthroplasty. Patient has history of significant dementia was unable to provide any significant history. Per chart review, her nursing facility noticed a deformity to her left lower extremity and radiographs obtained at her assisted living
facility revealed a dislocation. This evening again patient is unable to comply with history taking. Orthopedics was consulted for further evaluation and treatment.
Allergies / Home Medications
Past medical history: Dementia, hypertension, hyperlipidemia, schizoaffective disorder, bipolar
Past surgical history: Right total hip arthroplasty, left hip hemiarthroplasty and 02/03/2025
Social history: Non-smoker, lives at assisted
Family history: Not pertinent
Allergy/AdvReac Type Severity Reaction Status Date / Time
Oil Face Cream Allergy Unknown Uncoded 02/21/25 15:19
�Medication �Instructions �Recorded
acetaminophen 325 mg tablet 650 mg PO BID 02/02/25
(Tylenol)
atorvastatin 20 mg tablet 20 mg PO HS 02/02/25
carbamide peroxide 6.5 % ear drops 4 drp EACH EAR WE 02/02/25
(Debrox)
cholecalciferol (vitamin D3) 25 25 mcg PO DAILY 02/02/25
mcg (1,000 unit) tablet
cyanocobalamin (vitamin B-12) 500 1,000 mcg PO DAILY 02/02/25
mcg tablet
donepezil 10 mg tablet 10 mg PO HS 02/02/25
escitalopram oxalate 10 mg tablet 10 mg PO DAILY 02/02/25
(Lexapro)
guaifenesin 100 mg/5 mL oral liquid 200 mg PO Q4H PRN cough 02/02/25
melatonin 3 mg tablet 3 mg PO HS 02/02/25
olanzapine 2.5 mg tablet 2.5 mg PO HS 02/02/25
propranolol 60 mg tablet 60 mg PO HS 02/02/25
bisacodyl 10 mg rectal suppository 10 mg [place] DAILY PRN constipation 02/10/25
(Dulcolax (bisacodyl)) #12 ea
enoxaparin 40 mg/0.4 mL 40 mg (0.4 mL) SC DAILY #27 mL 02/10/25
subcutaneous syringe
nifedipine 30 mg tablet,extended 30 mg PO DAILY #30 tabs 02/10/25
release
polyethylene glycol 3350 17 gram 17 g PO DAILY #14 ea 02/10/25
oral powder packet
sennosides 8.6 mg tablet (Andreea-marty) 8.6 mg PO BID #14 tabs 02/10/25
magnesium hydroxide 400 mg/5 mL 30 ml PO DAILYPRN PRN constipation 02/21/25
oral suspension (Milk of Magnesia)
sodium phosphates 19 gram-7 118 ml [place] DAILYPRN PRN constipation 02/21/25
gram/118 mL enema (Fleet Enema)
Vital Signs / Lab Results
Temp Pulse Resp BP Pulse Ox
98.6 F 74 18 106/40 100
02/21/25 17:45 02/21/25 17:45 02/21/25 17:45 02/21/25 17:45 02/21/25 17:45
10 point review systems reviewed and negative unless otherwise stated
General: Confused, unable to reply meaningfully to history taking
Musculoskeletal left lower extremity
Skin with amrik in place, no di-incisional erythema or significant ecchymotic staining
Extremity is shortened and externally rotated
Spontaneously moving toes and ankle
Brisk cap refill distally
Diagnostic studies
X-rays left hip reveal posterior dislocation of left hip hemiarthroplasty. No fractures identified.
Procedure
Sedation was administered by the emergency department after speaking with patient's daughter via telephone to receive consent. After appropriate sedation, did perform closed reduction with gentle hip flexion internal rotation and external rotation
maneuver. Palpable clunk was felt. Leg lengths were equal without rotational deformity. Flatplate radiographs at bedside did reveal appropriate reduction of the left hip hemiarthroplasty dislocation. Patient was placed in a knee immobilizer as
well as a abduction pillow. Patient tolerated procedure well without immediate complication.
Assessment / Plan
89-year-old female history of dementia with left hip hemiarthroplasty dislocation status post successful closed reduction
Weightbearing as tolerated left lower extremity
PT OT
Recommend continued posterior hip precautions avoidance of adduction and deep flexion of left hip
Recommend knee immobilizer until further follow-up to prevent further instability episodes
Continue DVT prophylaxis per previous recommendations. Recommend Lovenox renally dosed x 28 days postop
Follow-up with myself in the office in 2 weeks for repeat clinical assessment with repeat radiographs left hip.
--- NOTE | 2025-02-21 18:51 | EDRN ---
Attempted to call report to [facility] at [phone]. No answer x2 w no voicemail option. Will give report to EMS when arrive for transport back to [facility].
== END 2025-02-21 19:57 ==
LOC: EMR 15:07
PROVIDERS: EMERGENCY PHYSICIAN Emergency Medicine; FAMILY PHYSICIAN Family Medicine
DX: T84.021A Dislocation of internal left hip prosthesis, initial encounter (principal); X58.XXXA Exposure to other specified factors, initial encounter; I10 Essential (primary) hypertension; G30.9 Alzheimer's disease, unspecified; F02.83 Dementia in other diseases classified elsewhere, unspecified severity, with mood disturbance; E78.00 Pure hypercholesterolemia, unspecified; F31.9 Bipolar disorder, unspecified; F25.9 Schizoaffective disorder, unspecified
CPT/HCPCS: 99285; 27265; 99152; 73501; 73502

== ENCOUNTER 2025-03-12 16:02 | Emergency (ER) | payer MEDICARE, OTHER, SELFPAY ==
[2025-03-12] VITALS (33 sets, daily range): BP systolic 94–138; BP diastolic 42–102
--- NOTE | 2025-03-12 17:04 | ED.GENMED ---
History of Present Illness
<Neal Francis Jr., PA-C - Last Filed: 03/12/25 18:35>
General
Chief Complaint: Musculo-Skeletal Complaint
Source: ambulance crew and senior living
Exam Limitations: dementia
Time Seen by Provider: 03/12/25 16:40
Nursing documentation reviewed up to this point in time: agreed with
History of Present Illness
History of Present Illness:
The patient is an 89-year-old female who presented with concerns of a hip dislocation. She was previously evaluated by Dr. Mayer who suspected a dislocation and advised further evaluation. The patient was brought to the emergency department by a
transport team from [facility] after the hip dislocation occurred while at [facility]. She had previously tolerated propofol well during sedation for a similar issue. The patient is unable to recall the last time she ate, and she is
disoriented regarding her current location. There is no complaint of leg pain reported at this time. Of note she was here for similar issue a few weeks ago. 02/21/2025
Past History
<Neal Francis Jr., PA-C - Last Filed: 03/12/25 18:35>
Past History
ED Past Medical History: HTN, Hypercholesterolemia, Psychiatric (Bipolar) and Other (Dementia)
ED Past Surgical History: Orthopedic (Left hip replacement on 02/03/2025)
Social History
Tobacco: Non-smoker
Alcohol: None
Drug: None
Living: senior living
Review of Systems
<Neal Francis Jr., PA-C - Last Filed: 03/12/25 18:35>
Review of Systems
Allergies reviewed?: Yes
Unable to obtain full review of systems at this time due to: dementia
All Other Systems: ROS reviewed and negative except as documented in HPI and ROS
Phy Exam
<Neal Francis Jr., PA-C - Last Filed: 03/12/25 18:35>
Physical Exam
Physical Exam:
GENERAL: Alert , in no apparent distress
EYE: pupils equal and reactive
NECK: Supple, no significant adenopathy.
ENT: o/p clr, mmm.
CARDIAC: Regular rate and rhythm .
LUNGS: Clear breath sounds bilaterally, no acute respiratory distress, no wheezes/rales/rhonchi
ABDOMEN: Soft, without focal tenderness, no r/g, no cvat
NEUROLOGICAL: Alert not oriented to person place or time no focal neuro deficits
SKIN: Warm and dry, skin intact.
MUSCULOSKELETAL: Discomfort to the left lateral hip with shortened left leg no edema, well perfused.
PSYCH: Normal and appropriate interaction.
Course
<Neal Francis Jr., JAZMINE-Vasu - Last Filed: 03/12/25 18:35>
Orders/Labs/Results
Orders:
Orders
03/12/25 16:42
Hip, Left 2-3 Views [CR Hip - LT w/wo Pel 2-3 Vw*] Urgent
Comment:
Reason For Exam: hip pain leg shortening
Include a pelvis x-ray?: Yes
03/12/25 17:43
Propofol [Diprivan] 20 ml .ROUTE .STK-MED
03/12/25 18:03
Hip, Left 2-3 Views [CR Hip - LT w/wo Pel 2-3 Vw*] Urgent
Comment:
Reason For Exam: post hip reduction
Include a pelvis x-ray?: No
Vital Signs
Initial and Last Documented VS:
Initial Vital Signs
Temp Pulse Resp BP Pulse Ox
98.3 F 75 16 130/49 97
03/12/25 16:13 03/12/25 16:13 03/12/25 16:13 03/12/25 16:13 03/12/25 16:13
Last Documented Vital Signs
Temp Pulse Resp BP Pulse Ox
98.8 F 89 22 128/88 97
03/12/25 18:15 03/12/25 18:30 03/12/25 18:30 03/12/25 18:30 03/12/25 18:30
<Vahid Wyatt MD - Last Filed: 03/12/25 18:12>
Orders/Labs/Results
Orders:
Orders
03/12/25 16:42
Hip, Left 2-3 Views [CR Hip - LT w/wo Pel 2-3 Vw*] Urgent
Comment:
Reason For Exam: hip pain leg shortening
Include a pelvis x-ray?: Yes
03/12/25 17:43
Propofol [Diprivan] 20 ml .ROUTE .STK-MED
03/12/25 18:03
Hip, Left 2-3 Views [CR Hip - LT w/wo Pel 2-3 Vw*] Urgent
Comment:
Reason For Exam: post hip reduction
Include a pelvis x-ray?: No
Vital Signs
Initial and Last Documented VS:
Initial Vital Signs
Temp Pulse Resp BP Pulse Ox
98.3 F 75 16 130/49 97
03/12/25 16:13 03/12/25 16:13 03/12/25 16:13 03/12/25 16:13 03/12/25 16:13
Last Documented Vital Signs
Temp Pulse Resp BP Pulse Ox
98.8 F 89 22 128/88 97
03/12/25 18:15 03/12/25 18:30 03/12/25 18:30 03/12/25 18:30 03/12/25 18:30
Procedures
<Vahid Wyatt MD - Last Filed: 03/12/25 18:12>
Moderate Sedation
ASA Risk Score: Class III
Chart and allergies reviewed: Yes
Consent for anesthesia obtained: Yes
Time out completed (validating right patient & procedure): Yes
Moderate Sedation Start Time(when first medication is given): 17:53
History of difficult intubation: No
Airway free of obstruction: Yes
Patient has a gag reflex: Yes
Patient is able to open mouth: Yes
Patient has no dentures: Yes
Patient has no loose teeth: Yes
Medication administered by Provider during Moderate Sedation: IV Propofol (mg)
Total dose administered: 100
Time drug administered: 17:53
Moderate Sedation Procedure End Time: 18:08
Splinting/Sling Placement
Left Knee:
Procedure completed by: Vahid Wyatt MD; Neal Francis PA-C
Pre-splint extermity exam: neurovascular intact
Type of splint: knee immobilizer
Splint checked by provider?: Yes
Normal distal neurovascular exam?: Yes
Joint/Fracture Reduction
Left Hip:
Indication for procedure:: hip dislocation
Procedure completed by: Vahid Wyatt MD; Neal Francis PA-C
Consent form signed: Yes
Anesthesia/sedation: Moderate sedation
Injury was: closed
Further treatement: no treatment needed
Post reduction exam: stable
Capillary Refill: normal
Normal distal neurovascular exam?: Yes
<Neal Francis Jr., PA-C - Last Filed: 03/12/25 18:35>
MDM/Problems Addressed
MDM/Problems Addressed:
- Obtain an X-ray to confirm the suspected hip dislocation.
- If confirmed, proceed with sedation and reduction of the dislocation, similar to the previous episode with propofol administration.
Patient does have dementia consent for reduction was obtained through patient's next of kin the patient's daughter confirmed over the phone and consented to the procedure to reduce the hip.
Patient's left hip reduced with moderate sedation with propofol. Patient tolerated well. Stable for discharge at this time. Case discussed with orthopedics recommending an abduction pillow. Patient also placed in the immobilizer.
<Neal Francis Jr., PA-C - Last Filed: 03/12/25 18:35>
*Pulse Oximetry
Patient hypoxic: no (97)
*Critical Care Note
Total Time (30-74mins, 75-104mins- exclusive of procedures): Not Applicable
ED Attending Note
<Neal Francis Jr., PA-C - Last Filed: 03/12/25 18:35>
-
Portions of this chart may have been created with voice recognition software.� Occasional wrong word or��sound alike� substitutions may have occurred due to the inherent limitations of voice recognition software.
<Vahid Wyatt MD - Last Filed: 03/12/25 18:12>
ED Attending Note
Patient seen and examined by attending physician: Yes
ED Attending Note:
I have seen and evaluated the patient with a [id number] encounter. I have spoken to the advance practicer provider and involved in the medical history, the physical exam, medical decision making.
Evaluation and management service: agree unless noted differently below.
Results interpretation: agree unless noted differently below.
Focused HPI: 89-year-old female with history as noted significant for dementia who presents to the emergency room sent in by orthopedist due to hip dislocation. She had a follow-up appoint with Dr. Mayer in the office and when they removed her
knee immobilizer her hip dislocated. She was referred for reduction in the emergency room.
Physical exam: Awake alert. Left lower extremity is shortened and slightly internally rotated. Strong distal pulse dorsalis pedis in the left lower extremity
Medical Decision Makin-year-old female presents with recurrent hip dislocation. X-ray confirmed dislocation of the left hip. Consent for reduction and sedation obtained via telephone from patient's daughter. Hip was successfully reduced
under moderate sedation as documented in procedure note. Knee immobilizer applied. Will observe after sedation and plan to discharge with outpatient orthopedic follow-up.
Discharge Plan
Departure
Patient Disposition: Skilled Nursing/SNF
Date of Disposition: 03/12/25
Time of Disposition: 18:29
Patient with high blood pressure during this ER visit?: No
Condition: Good
Covid-19: Not Applicable
Discharge Problem:
Dislocation, hip
Instructions: Hip Dislocation (DC)
Prescriptions:
No Action
acetaminophen [Tylenol] 325 mg Tablet
650 mg PO BID
atorvastatin 20 mg Tablet
20 mg PO HS
donepezil 10 mg Tablet
10 mg PO HS
propranolol 60 mg Tablet
60 mg PO HS
melatonin 3 mg Tablet
3 mg PO HS
olanzapine 2.5 mg Tablet
2.5 mg PO HS
guaifenesin 100 mg/5 mL Liquid
200 mg PO Q4H PRN (Reason: cough)
cyanocobalamin (vitamin B-12) 500 mcg Tablet
1,000 mcg PO DAILY
Debrox 6.5 % Drops
4 drp EACH EAR WE
escitalopram oxalate [Lexapro] 10 mg Tablet
10 mg PO DAILY
cholecalciferol (vitamin D3) 25 mcg (1,000 unit) Tablet
25 mcg PO DAILY
polyethylene glycol 3350 17 gram Powder In Packet
17 g PO DAILY Qty: 14 0RF
enoxaparin 40 mg/0.4 mL Syringe
40 mg SC DAILY Qty: 27 0RF
nifedipine 30 mg Tablet Extended Release
30 mg PO DAILY Qty: 30 0RF
sennosides [Andreea-marty] 8.6 mg Tablet
8.6 mg PO BID Qty: 14 0RF
bisacodyl [Dulcolax (bisacodyl)] 10 mg suppository
10 mg CO DAILY PRN (Reason: constipation) Qty: 12 0RF
magnesium hydroxide [Milk of Magnesia] 400 mg/5 mL Suspension
30 ml PO DAILYPRN PRN (Reason: constipation)
Fleet Enema 19-7 gram/118 mL Enema
118 ml [place] DAILYPRN PRN (Reason: constipation)
Referrals:
Letty Cortes DO [Family Provider, General]
Activity Restrictions/Additional Instructions:
Eleonora came in with a dislocated left hip. This was reduced. She tolerated well. Please leave the knee immobilizer in place and use the hip abductor to reduce likelihood of recurrence and follow-up closely with orthopedics.
Interventions
Interventions:
*Risk Screen - Suicide Last Done: 03/12/25 17:16
*General Assessment Last Done: 03/12/25 17:16
*Neglect/Abuse Screening Last Done: 03/12/25 17:16
*ED- Fall Risk Assessment Last Done: 03/12/25 17:16
*ED COVID-19 Vaccine History Last Done: 03/12/25 17:16
ED-Musculoskeletal Assessment Last Done: 03/12/25 17:16
Discharge Date and Time
Print Language: GEORGIAN
== END 2025-03-12 20:57 ==
LOC: EMR 16:02
PROVIDERS: EMERGENCY PHYSICIAN Emergency Medicine; FAMILY PHYSICIAN Family Medicine
DX: T84.021A Dislocation of internal left hip prosthesis, initial encounter (principal); Y79.2 Prosthetic and other implants, materials and accessory orthopedic devices associated with adverse incidents; Z96.641 Presence of right artificial hip joint; I10 Essential (primary) hypertension; E78.00 Pure hypercholesterolemia, unspecified; F03.93 Unspecified dementia, unspecified severity, with mood disturbance; F31.9 Bipolar disorder, unspecified
CPT/HCPCS: 99284; 27265; 99152; 73502

== ENCOUNTER → 2025-03-27 10:35 | Outpatient (REF) | payer MEDICARE, OTHER, SELFPAY ==
[2025-03-27 11:16] LABS: % Basophils 0.6 % (0-2); % Eosinophils 1.2 % (0-6); % Immature Granulocytes 0.7 % (0-0.5); % Lymphocytes 9.6 % (20.5-51.1); % Monocytes 9.9 % (1.7-9.3); Absolute Basophils 0.1 10^3/uL (0-0.2); Absolute Eosinophils 0.1 10^3/uL (0-0.7); Absolute Immature Granulocytes 0.1 10^3/uL (0-0.05); Absolute Lymphocytes 1.1 10^3/uL (1.2-3.4); Absolute Monocytes 1.1 10^3/uL (0.1-0.6); Absolute Neutrophils 8.8 10^3/uL (1.4-6.5); Hematocrit 28.1 % (37.0-47.0); Hemoglobin 8.7 g/dL (12.0-16.0); Mean Corpuscular Hgb 29.1 pg (27.0-31.0); Mean Platelet Volume 9.3 fL (7.4-10.4); Nucleated Red Blood Cells % 0 %; Platelet Count 393 10^3/uL (130-400); Red Blood Cell Count 2.99 10^6/uL (4.20-5.40); Red Cell Dist. Width 16.1 % (11.5-14.5); White Blood Cell Count 11.2 10^3/uL (4.8-10.8)
== END ==
LOC: OLABP 10:35
PROVIDERS: ATTENDING PHYSICIAN Family Medicine
DX: S72.002D Fracture of unspecified part of neck of left femur, subsequent encounter for closed fracture with routine healing (principal); D62 Acute posthemorrhagic anemia; I10 Essential (primary) hypertension; M51.360 Other intervertebral disc degeneration, lumbar region with discogenic back pain only
CPT/HCPCS: 36415; 85025; 87070; 87077; 87186; 87205

== ENCOUNTER → 2025-03-30 14:51 | Outpatient (REF) | payer MEDICARE, OTHER, SELFPAY ==
[2025-03-30 15:48] LABS: % Basophils 0.9 % (0-2); % Eosinophils 3.1 % (0-6); % Immature Granulocytes 0.9 % (0-0.5); % Lymphocytes 15.1 % (20.5-51.1); % Monocytes 11.9 % (1.7-9.3); % Neutrophils 68.1 % (42.2-75.2); Absolute Basophils 0.1 10^3/uL (0-0.2); Absolute Eosinophils 0.2 10^3/uL (0-0.7); Absolute Immature Granulocytes 0.1 10^3/uL (0-0.05); Absolute Lymphocytes 1.2 10^3/uL (1.2-3.4); Absolute Monocytes 0.9 10^3/uL (0.1-0.6); Absolute Neutrophils 5.2 10^3/uL (1.4-6.5); Hematocrit 28.4 % (37.0-47.0); Hemoglobin 8.6 g/dL (12.0-16.0); Mean Corp Hgb Conc. 30.3 g/dL (33.0-37.0); Mean Corpuscular Volume 95.6 fL (81.0-99.0); Mean Platelet Volume 9.3 fL (7.4-10.4); Nucleated Red Blood Cells % 0 %; Platelet Count 444 10^3/uL (130-400); Red Blood Cell Count 2.97 10^6/uL (4.20-5.40); Red Cell Dist. Width 15.9 % (11.5-14.5); White Blood Cell Count 7.7 10^3/uL (4.8-10.8)
== END ==
LOC: OLABP 14:51
PROVIDERS: ATTENDING PHYSICIAN Family Medicine
DX: S72.002D Fracture of unspecified part of neck of left femur, subsequent encounter for closed fracture with routine healing (principal); D62 Acute posthemorrhagic anemia; M51.360 Other intervertebral disc degeneration, lumbar region with discogenic back pain only
CPT/HCPCS: 85025